=== PATIENT | female | born 1945 | race Caucasian/White ===

== ENCOUNTER → 2018-05-31 11:32 | Outpatient (CLI) | payer MEDICARE, SELFPAY ==
[2018-05-31 12:00] LABS: INR 1.1 (0.9-1.3); Prothrombin Time 11.4 SECONDS (10.1-12.7)
== END ==
PROVIDERS: PCP Family Medicine; Visit Provider Anesthesiology Pain Medicine
DX: Z79.01 Long term (current) use of anticoagulants (principal)
CPT/HCPCS: 36415; 85610

== ENCOUNTER 2018-06-15 10:25 | Emergency (ER) | payer MEDICARE, SELFPAY ==
--- NOTE | 2018-06-15 10:29 | ED.GENADULT ---
HPI - General Adult General Chief complaint: Urogenital-Female Stated complaint: POSSIBLE KIDNEY STONE Time Seen by Provider: 06/15/18 10:29 Source: patient Mode of arrival: ambulatory Limitations: no limitations History of Present Illness HPI narrative: 72-year-old female here for evaluation of urinary frequency and urgency and incontinence. She states that this has been going on for at least 3 weeks now. She states that she seems like she is going to the bathroom more often at night having to get up out of bed. She states she does have some incontinence when she sneezes or laughs however this is not new for her. She also has a longstanding history of lower back pain and has a nerve stimulator in place. She states that for the past week she has noticed that the back pain has radiated around to her right side which makes her thinks that she has a kidney stone. She has no new back pain. No fevers. No bowel symptoms. Related Data Home Medications Medication Instructions Recorded Confirmed gabapentin [Neurontin] 600 mg PO TID #0 12/25/10 insulin regular human [Novolin R 10 - 17 u SQ AC #0 12/25/10 Regular U-100 Insuln] venlafaxine [Effexor XR] 300 mg PO Q DAY #0 12/25/10 Previous Rx's Medication Instructions Recorded albuterol sulfate [Proventil HFA] 1 puff INH Q 6 HRS #1 inh 05/14/16 Disabled Parking Permit ea #1 05/14/17 insulin NPH isoph U-100 human 47 u SC BID #3 vial 05/15/17 [Novolin N NPH U-100 Insulin] morphine 15 mg PO BID #30 tab 08/24/17 clopidogrel 75 mg tablet 75 mg PO QDAY #90 tab 05/16/18 verapamil ER (SR) 240 mg 240 mg PO QDAY #90 tab 05/16/18 tablet,extended release Allergies Allergy/AdvReac Type Severity Reaction Status Date / Time adhesive [ADHESIVE] Allergy Unknown Verified 06/15/18 10:40 chlorpheniramine Allergy Unknown HIVES Verified 06/15/18 10:40 Penicillins Allergy Unknown RASH Verified 06/15/18 10:40 phenylephrine Allergy Unknown HIVES Verified 06/15/18 10:40 Sulfa (Sulfonamide Allergy Unknown RASH Verified 06/15/18 10:40 Antibiotics) celecoxib AdvReac Unknown MAKES ME Verified 06/15/18 10:40 MCKENZIE NSAIDS (Non-Steroidal AdvReac Unknown ELEVATED BP Verified 06/15/18 10:40 Anti-Inflamma Review of Systems Constitutional Denies fever(s) Cardiovascular Denies chest pain and Denies dyspnea Respiratory Denies dyspnea Gastrointestinal Gastrointestinal: Denies abdominal pain, Denies nausea and Denies vomiting Genitourinary Denies dysuria, Reports urinary incontinence, Reports urinary hesitancy, Reports urinary urgency and Denies vaginal discharge Musculoskeletal Denies myalgias and Denies arthralgias Integumentary/Breasts Denies lesions and Denies rash Hematologic/Lymphatic Denies easy bleeding and Denies easy bruising PFSH Medical History Back pain (Acute) Diabetes (Acute) Fusion of lumbar spine (Acute) Social History Smoking Status: Former smoker Comment: Surgical history significant for fusion of lumbar spine Exam Initial Vital Signs Initial Vital Signs: Vital Signs Temperature 98.6 F 06/15/18 10:36 Pulse Rate 100 H 06/15/18 10:36 Respiratory Rate 18 06/15/18 10:36 Blood Pressure 147/90 H 06/15/18 10:36 Pulse Oximetry 97 06/15/18 10:36 Const General: cooperative, healthy appearing, comfortable, well developed, well groomed and No acute distress Orientation: alert, awake and oriented x3 HENMT Head: normal to inspection and normocephalic Resp Effort & Inspection: normal respiratory effort Auscultation: clear to auscultation bilaterally Cardio Rate: regular rate Rhythm: regular rhythm Pulses: radial pulses present GI Inspection: non-distended Palpation: soft, No firm and No tender Back/Spine/Pelvis Back: No CVA tenderness Skin Lesions: no lesions Rashes: no rashes Neuro General: alert, awake and oriented x3 Extrem General: normal to inspection and capillary refill normal Psych Appearance: grossly normal and well kempt Attitude: cooperative Course Orders Ordered: ED Orders 06/15/18 11:00 Basic Metabolic Panel Stat Vital Signs - 8 hr 06/15/18 10:36 Temperature 98.6 F Pulse Rate 100 H Respiratory Rate 18 Blood Pressure 147/90 H Pulse Oximetry 97 Medical Decision Making Lab Data Lab results reviewed: Yes I reviewed the patient's lab results. Result diagrams: 06/15/18 11:00 Lab Results 06/15/18 Range/Units 11:00 Sodium 140 (137-145) mmol/L Potassium 4.1 (3.4-5.1) mmol/L Chloride 96 L (98-107) mmol/L Carbon Dioxide 31 (22-32) mmol/L BUN 18 H (7-17) mg/dL Creatinine 0.80 (0.52-1.04) mg/dL Estimated GFR > 60.0 (>60) mL/min BUN/Creatinine Ratio 22.5 H (6-22) Glucose 268 H (80-110) mg/dL Calcium 9.0 (8.4-10.2) mg/dL Urine Dip Bedside Urine Glucose 250 mg/dl Bedside Urine Bilirubin - Negative Bedside Urine Ketone - Negative Urine Specific Arnold 1.015 Bedside Urine Occult Blood - Negative Bedside Urine pH 6.0 Bedside Urine Protein - Negative Bedside Urine Urobilinogen - Negative Bedside Urine Nitrite - Negative Bedside Urine Leukocytes - Negative Esterase Point of care testing: Urine Dip Bedside Urine Glucose 250 mg/dl Bedside Urine Bilirubin - Negative Bedside Urine Ketone - Negative Urine Specific Arnold 1.015 Bedside Urine Occult Blood - Negative Bedside Urine pH 6.0 Bedside Urine Protein - Negative Bedside Urine Urobilinogen - Negative Bedside Urine Nitrite - Negative Bedside Urine Leukocytes - Negative Esterase MDM Narrative Medical decision making narrative: Patient's urinalysis today shows no blood in her urine. No signs of infection. She is hyperglycemic but no signs of DKA. Bladder scan shows less than 15 cc in her urine postvoid residual. Patient has had chronic lower back pain. Has not changed. She has not had any fevers. She does have a nerve stimulator in place and considered diagnoses such as epidural hematoma, epidural abscess, cauda equina however her physical exam otherwise is not consistent with these diagnoses. Will hold on further workup for now. Patient was instructed to monitor how much she is drinking over the next couple days. Will hold on any antibiotics as there is no signs of infection. I have a very low suspicion for kidney stone given her presentation. Will hold on a CT scan. I do suspect that she is having bladder spasms. She has had incontinence for a very long time. Informed patient that she should contact her primary care doctor for follow-up and to discuss the indications to see Urology/uro gynecology. She was given return precautions. She expressed understanding and agreement with plan. Discharge Plan Departure Patient Disposition: Home Clinical Impression: Dysuria, Urinary frequency Instructions: DI for Urinary Incontinence Activity Restrictions/Additional Instructions: I would recommend that you contact your primary care doctor tomorrow to discuss the indications to see a urologist or a urogynecologist. Return to the emergency department for any new or worsening symptoms. Continue all of your medications as directed. Prescriptions: No Action venlafaxine [Effexor XR] 150 MG capsule,extended release 24hr 300 mg PO Q DAY Qty: 0 RF: 0 gabapentin [Neurontin] 600 MG tablet 600 mg PO TID Qty: 0 RF: 0 insulin regular human [Novolin R Regular U-100 Insuln] 100 UNIT/1 ML solution 10 - 17 u SQ AC Qty: 0 RF: 0 albuterol sulfate [Proventil HFA] 90 MCG/PUFF HFA aerosol inhaler 1 puff INH Q 6 HRS Qty: 1 RF: 0 Disabled Parking Permit Qty: 1 RF: 0 insulin NPH isoph U-100 human [Novolin N NPH U-100 Insulin] 100 UNIT/1 ML suspension 47 u SC BID Qty: 3 RF: 0 morphine 15 MG tablet extended release 15 mg PO BID Qty: 30 RF: 0 verapamil 240 mg tablet extended release 240 mg PO QDAY Qty: 90 RF: 0 clopidogrel [Plavix] 75 mg tablet 75 mg PO QDAY Qty: 90 RF: 0
[2018-06-15 10:36] VITALS: BP 147/90; PULSE 100; RESP 18; TEMP 37; O2SAT 97; BMI 36.0
[2018-06-15 11:18] LABS: BUN Creatinine Ratio 22.5 (6-22); Blood Urea Nitrogen 18 mg/dL (7-17); Carbon Dioxide 31 mmol/L (22-32); Chloride 96 mmol/L (98-107); Estimated Glomerular Filt Rate > 60.0 mL/min (>60); Glucose 268 mg/dL (80-110); HEMOLYSIS < 15 (0-50); Potassium 4.1 mmol/L (3.4-5.1); Sodium 140 mmol/L (137-145)
[2018-06-15 12:29] VITALS: BP 138/64; PULSE 82; RESP 20; TEMP 36.8; O2SAT 99
== END 2018-06-15 12:30 | disposition home or self-care (01) ==
PROVIDERS: Emergency Provider Emergency Medicine; PCP Family Medicine
DX: R30.0 Dysuria (principal); R35.0 Frequency of micturition
CPT/HCPCS: 36415; 51798; 80048; 81003; 99283

== ENCOUNTER → 2018-10-16 10:19 | Outpatient (CLI) | payer MEDICARE, SELFPAY ==
[2018-10-16 11:19] LABS: Add Manual Diff / Slide Review NO; Basophils Absolute Auto 100 /uL (0-100); Basophils Percent Auto 1.1 % (0-2); Eosinophils Absolute Auto 100 /uL (0-450); Eosinophils Percent Auto 1.5 % (2-4); Hematocrit 40.9 % (36-46); Hemoglobin 13.3 g/dL (12.0-16.0); Lymphocytes Absolute Auto 3600 /uL (1100-4500); Lymphocytes Percent Auto 38.4 % (25-40); Mean Corpuscular HGB Conc 32.4 % (30-36); Mean Corpuscular Hemoglobin 28.7 PG (26-34); Mean Corpuscular Volume 88.3 fL (80-100); Monocytes Absolute Auto 700 /uL (0-900); Monocytes Percent Auto 7.2 % (3-14); Neutrophils Absolute Auto 4900 /uL (1500-7000); Neutrophils Percent Auto 51.8 % (50-75); Platelet Count 266 X10^3/uL (150-400); Red Blood Cell Count 4.63 X10^6/uL (4.0-5.2); Red Cell Distribution Width 14.6 % (11.6-14.8); White Blood Cell Count 9.5 X10^3/uL (4.5-11.0)
[2018-10-16 11:27] LABS: Alanine Aminotransferase 17 IU/L (9-52); Albumin 4.3 g/dL (3.5-5.0); Albumin Globulin Ratio 1.2 (1.0-2.8); Alkaline Phosphatase 65 U/L (38-126); Aspartate Aminotransferase 19 IU/L (14-36); BUN Creatinine Ratio 14.4 (6-22); Bilirubin Total 0.6 mg/dL (0.2-1.3); Blood Urea Nitrogen 13 mg/dL (7-17); Carbon Dioxide 27 mmol/L (22-32); Chloride 96 mmol/L (98-107); Cholesterol 213 mg/dL (140-199); Estimated Glomerular Filt Rate > 60.0 mL/min (>60); Globulin 3.6 g/dL (1.7-4.1); Glucose 255 mg/dL (80-110); HDL Cholesterol 43 mg/dL (40-60); HEMOLYSIS < 15 (0-50); LDL Cholesterol Calculated 133 mg/dL (<100); Sodium 136 mmol/L (137-145); Total Protein 7.9 g/dL (6.3-8.2); Triglycerides 183 mg/dL (35-150)
[2018-10-16 11:30] LABS: Hemoglobin A1C% w Est Avg Glu 10.1 % (4.0-6.0)
[2018-10-16 11:57] LABS: Thyroid Stimulating Hormone 3.14 uIU/mL (0.47-4.68)
== END ==
PROVIDERS: PCP Family Medicine; Visit Provider Family Medicine
DX: E11.9 Type 2 diabetes mellitus without complications (principal); I10 Essential (primary) hypertension; M40.204 Unspecified kyphosis, thoracic region; Z91.19 Patient's noncompliance with other medical treatment and regimen
CPT/HCPCS: 36415; 80053; 80061; 83036; 84443; 85025

== ENCOUNTER 2018-11-16 01:20 | Inpatient (IN) | payer MEDICARE, SELFPAY ==
[2018-11-16] VITALS (22 sets, daily range): BP systolic 133–171; BP diastolic 51–84; PULSE 97–114; RESP 13–24; TEMP 36.2–37.6; O2SAT 87–95; BMI 35.4
--- NOTE | 2018-11-16 | DI.ECHO.S_ITS ---
[facility] +---------+ [facility] +---------+ : : [address] : : : : [id number] : : : : Phone: [phone] Echocardiogram Report + + :Name: HORACE SANABRIA Study Date: 11/17/2018 Height: 68 in : :[facility] Weight: 239 lb : : Gender: Female BSA: 2.2 m2 : :: 1945 Age: 73 yrs BP: 118/85 mmHg: :Reason For Study: Dyspnea : : Performed By: Marcella Lerma : :Referring: ISMAEL NAVAS : + + Interpretation Summary Technically difficult study and suboptimal images were obtained. Mild-moderately dilated left ventricle with ejection fraction 40-45%. The endocardium is not well visualized. Moderately dilated left atrium. Severe mitral regurgitation. The right ventricular systolic pressure is estimated to be at least 37 mmHg based on an estimated right atrial pressure of 3 mm Hg. Procedure: A two-dimensional transthoracic echocardiogram with color flow and Doppler was performed. The study quality was technically difficult. There is no prior echocardiogram noted for this patient. The heart rate ranged between 100-101 bpm during the study. Left Ventricle: The left ventricle is mild-moderately dilated. There is normal left ventricular wall thickness. The ejection fraction is estimated to be 40-45%. Diastolic function could not be accurately assessed due to tachycardia. Right Ventricle: The right ventricle grossly appears normal in size with probable normal systolic function. Atria: The left atrium is moderately dilated. Right atrial size is normal. Mitral Valve: The mitral valve is grossly normal. There is severe mitral regurgitation. Aortic Valve: The aortic valve opens well. No aortic regurgitation is present. Tricuspid Valve: The tricuspid valve is normal in structure and function. There is trace tricuspid regurgitation. The right ventricular systolic pressure is estimated to be at least 37 mmHg based on an estimated right atrial pressure of 3 mm Hg. Pulmonic Valve: The pulmonic valve is not well visualized. There is trace pulmonic regurgitation. Great Vessels: The aortic root is normal size. The ascending aorta is at the upper limits of normal in size. The aortic arch is normal in size. The IVC is of normal diameter and collapses greater than 50% with a sniff. This suggests a low right atrial pressure of 3 mm Hg. Pericardium/ Pleura There is no pericardial effusion. There has been no significant change since the previous study. MMode/2D Measurements & Calculations LVIDd: 6.0 cm Ao root diam: 3.2 cm LVIDs: 4.9 cm Aortic Jxn: 2.9 cm FS: 18.0 % asc Aorta Diam: 3.4 cm EPSS: 0.79 cm Ao Arch Diam (Prox Trans): 2.8 cm IVSd: 0.83 cm LVPWd: 0.82 cm LV reyes. diameter/BSA (cm/m^2): 2.7 LV sys. diameter/BSA (cm/m^2): 2.2 LA dimension: 4.2 cm RA long axis: 5.3 cm LA A2 area: 25.7 cm2 RA area: 16.5 cm2 LA A4 area: 27.5 cm2 RA vol: 43.6 ml LA length (vol): 6.0 cm RA : 19.8 ml/m2 LA vol: 100.3 ml IVC diam: 1.7 cm LA vol index: 45.5 ml/m2 Doppler Measurements & Calculations Ao V2 max: 134.0 cm/sec MR ERO: 0.45 cm2 Ao V2 mean: 92.5 cm/sec Ao max P.2 mmHg Ao mean P.9 mmHg Ao V2 VTI: 26.7 cm TR max ang: 292.7 cm/sec MV V2 mean: 74.7 cm/sec TR max P.3 mmHg MV mean P.8 mmHg PA V2 max: 72.4 cm/sec MV V2 VTI: 21.1 cm PA V2 mean: 42.9 cm/sec PA mean P.93 mmHg PA Accel Time: 0.13 sec MR flow rate: 233.5 cm3/sec MR PISA radius: 0.98 cm Electronically signed by: Jesús Khan on Reading Physician:11/17/2018 01:30 PM
--- NOTE | 2018-11-16 01:34 | ED.SOB ---
HPI - SOB/Dyspnea General Chief Complaint: Upper Respiratory Symptoms Stated Complaint: can't breathe, lung congestion, tight chest Time Seen by Provider: 11/16/18 01:29 Source: patient Mode of arrival: ambulatory Limitations: no limitations History of Present Illness Patient is a 73-year-old female insulin-dependent diabetic here for evaluation of 2-3 days of worsening chest tightness, shortness of breath, dyspnea on exertion, and subjective fevers. Has been coughing but has been nonproductive. No chest pain. Has had some lower extremity swelling which is not new. Related Data Home Medications Medication Instructions Recorded Confirmed venlafaxine [Effexor XR] 300 mg PO Q DAY #0 12/25/10 11/16/18 gabapentin 600 mg tablet 1,200 mg PO TID #0 tab 09/15/18 11/16/18 insulin U- 100 regular human 100 See Rx Instructions SUBCUT BID ml 09/15/18 11/16/18 unit/mL injection solution Disabled Parking Permit 1 ea DAILY 11/16/18 11/16/18 Previous Rx's Medication Instructions Recorded albuterol sulfate HFA 90 1 puff INHALATION Q 6 HRS #1 inh 09/15/18 mcg/actuation aerosol inhaler clopidogrel 75 mg tablet 75 mg PO QDAY #90 tab 09/15/18 insulin NPH isophane U- 100 human 50 unit SUBCUT BID #3 vial 09/15/18 100 unit/mL subcutaneous suspension verapamil ER (SR) 240 mg 240 mg PO QDAY #90 tab 09/15/18 tablet,extended release Allergies Allergy/AdvReac Type Severity Reaction Status Date / Time vancomycin Allergy Intermediate itching Verified 09/15/18 17:26 adhesive [ADHESIVE] Allergy Unknown Verified 09/15/18 17:26 chlorpheniramine Allergy Unknown HIVES Verified 09/15/18 17:26 Penicillins Allergy Unknown RASH Verified 09/15/18 17:26 phenylephrine Allergy Unknown HIVES Verified 09/15/18 17:26 Sulfa (Sulfonamide Allergy Unknown RASH Verified 09/15/18 17:26 Antibiotics) celecoxib AdvReac Unknown MAKES ME Verified 09/15/18 17:26 LOONEY NSAIDS (Non-Steroidal AdvReac Unknown ELEVATED BP Verified 09/15/18 17:26 Anti-Inflamma Review of Systems Constitutional Reports fever(s) ENT Ears, Nose, Mouth, and Throat: Denies vertigo Cardiovascular Denies chest pain, Reports dyspnea and Reports dyspnea on exertion Respiratory Reports chest congestion, Reports cough, Reports dyspnea and Reports dyspnea on exertion Gastrointestinal Gastrointestinal: Denies abdominal pain, Denies nausea and Denies vomiting Genitourinary Denies dysuria Musculoskeletal Denies myalgias and Denies arthralgias Comments: Lower extremity edema Integumentary/Breasts Denies rash Neurologic Denies confusion and Denies vertigo Psychiatric Denies confusion Hematologic/Lymphatic Denies easy bleeding and Denies easy bruising Allergic/Immunologic Denies urticaria [facility] Medical History Back pain (Acute) Diabetes (Acute) Fusion of lumbar spine (Acute) Social History Smoking Status: Former smoker Exam Initial Vital Signs Initial Vital Signs: Vital Signs Temperature 99.3 F 11/16/18 01:27 Pulse Rate 98 H 11/16/18 01:27 Respiratory Rate 24 11/16/18 01:27 Blood Pressure 155/51 H 11/16/18 01:27 Pulse Oximetry 95 11/16/18 01:27 Const General: cooperative, well groomed and No acute distress Orientation: alert, awake and oriented x3 HENMT Head: normal to inspection and normocephalic Resp Effort & Inspection: cough, labored, no retractions and tachypneic Auscultation: rhonchi and other (Decreased breath sounds bilateral) Cardio Rate: regular rate Pulses: radial pulses present GI Inspection: non-distended Palpation: soft Skin Lesions: no lesions Rashes: no rashes Neuro General: alert, awake and oriented x3 Cognition: normal cognition Speech: speech normal Extrem General: normal to inspection, capillary refill normal and edema (1+ pitting edema bilateral lower extremities) Psych Appearance: grossly normal and well kempt Scores GCS Diana coma scale eye opening: Spontaneous Diana coma scale verbal response: Orientated [place] coma scale motor response: Obey commands Diana coma scale total score: 15 Course Orders Ordered: ED Orders 11/16/18 01:35 XR chest 1V Stat 11/16/18 01:42 EKG-12 Lead Stat 11/16/18 01:43 RT Consult Eval and Treat Now 11/16/18 02:10 B Type Natriuretic Peptide Stat Complete Blood Count AUTO DIFF Stat Comprehensive Metabolic Panel Stat D Dimer Stat Influenza A and B by PCR Rapid Stat Lipase Stat Partial Thromboplastin Time Stat Prothrombin Time INR Stat Troponin I Stat 11/16/18 03:00 CT angio chest PE protocol Stat Discontinued Medications Albuterol (Ventolin) 2.5 mg INH NOW ONE Stop: 11/16/18 01:43 Last Admin: 11/16/18 01:49 Dose: 2.5 mg Azithromycin 500 mg/ Dextrose 250 mls @ 250 mls/hr IV NOW ONE Stop: 11/16/18 05:05 Vital Signs - 8 hr 11/16/18 01:27 11/16/18 01:49 11/16/18 02:59 Temperature 99.3 F Pulse Rate 98 H 98 H 99 H Respiratory Rate 24 14 24 Blood Pressure 155/51 H Blood Pressure [Left Arm] 151/54 H Pulse Oximetry 95 94 94 11/16/18 04:14 Temperature Pulse Rate 97 H Respiratory Rate 21 Blood Pressure Blood Pressure [Left Arm] 142/62 H Pulse Oximetry 95 MDM - SOB/Dyspnea Medical Records Attestation: I reviewed the patient's medical records. Lab Data Attestation: I reviewed the patient's lab results. Result diagrams: 11/16/18 02:10 11/16/18 02:10 Lab Results 11/16/18 11/16/18 11/16/18 Range/Units 02:10 02:10 02:10 WBC 10.7 (4.5-11.0) X10^3/uL RBC 3.99 L (4.0-5.2) X10^6/uL Hgb 11.7 L (12.0-16.0) g/dL Hct 35.2 L (36-46) % MCV 88.1 (80-100) fL MCH 29.3 (26-34) PG MCHC 33.2 (30-36) % RDW 15.4 H (11.6-14.8) % Plt Count 245 (150-400) X10^3/uL Neut % (Auto) 67.3 (50-75) % Lymph % (Auto) 23.1 L (25-40) % [place] % (Auto) 7.4 (3-14) % Eos % (Auto) 0.8 L (2-4) % Baso % (Auto) 1.4 (0-2) % Neut # (Auto) 7200 H (8757-9000) /uL Lymph # (Auto) 2500 (5885-0932) /uL [place] # (Auto) 800 (0-900) /uL Eos # (Auto) 100 (0-450) /uL Baso # (Auto) 100 (0-100) /uL PT 11.6 (10.1-12.7) SECONDS INR 1.0 (0.9-1.3) APTT 25 L (26.4-36.2) SECONDS D-Dimer (<230) ng/mL Sodium 133 L (137-145) mmol/L Potassium 4.3 (3.4-5.1) mmol/L Chloride 96 L (98-107) mmol/L Carbon Dioxide 27 (22-32) mmol/L BUN 17 (7-17) mg/dL Creatinine 0.90 (0.52-1.04) mg/dL Estimated GFR > 60.0 (>60) mL/min BUN/Creatinine Ratio 18.9 (6-22) Glucose 371 H (80-110) mg/dL Calcium 8.9 (8.4-10.2) mg/dL Total Bilirubin 0.5 (0.2-1.3) mg/dL AST 18 (14-36) IU/L ALT 13 (9-52) IU/L Alkaline Phosphatase 65 (38-126) U/L Troponin I 0.019 (0.01-0.034) ng/mL B-Natriuretic Peptide 140 H (<100) Total Protein 7.5 (6.3-8.2) g/dL Albumin 3.9 (3.5-5.0) g/dL Globulin 3.6 (1.7-4.1) g/dL Albumin/Globulin Ratio 1.1 (1.0-2.8) Lipase 77 (23-300) U/L Influenza A & B (PCR) (Negative) 11/16/18 11/16/18 Range/Units 02:10 02:10 WBC (4.5-11.0) X10^3/uL RBC (4.0-5.2) X10^6/uL Hgb (12.0-16.0) g/dL Hct (36-46) % MCV (80-100) fL MCH (26-34) PG MCHC (30-36) % RDW (11.6-14.8) % Plt Count (150-400) X10^3/uL Neut % (Auto) (50-75) % Lymph % (Auto) (25-40) % [place] % (Auto) (3-14) % Eos % (Auto) (2-4) % Baso % (Auto) (0-2) % Neut # (Auto) (4830-8647) /uL Lymph # (Auto) (7144-9705) /uL [place] # (Auto) (0-900) /uL Eos # (Auto) (0-450) /uL Baso # (Auto) (0-100) /uL PT (10.1-12.7) SECONDS INR (0.9-1.3) APTT (26.4-36.2) SECONDS D-Dimer 417 H (<230) ng/mL Sodium (137-145) mmol/L Potassium (3.4-5.1) mmol/L Chloride (98-107) mmol/L Carbon Dioxide (22-32) mmol/L BUN (7-17) mg/dL Creatinine (0.52-1.04) mg/dL Estimated GFR (>60) mL/min BUN/Creatinine Ratio (6-22) Glucose (80-110) mg/dL Calcium (8.4-10.2) mg/dL Total Bilirubin (0.2-1.3) mg/dL AST (14-36) IU/L ALT (9-52) IU/L Alkaline Phosphatase (38-126) U/L Troponin I (0.01-0.034) ng/mL B-Natriuretic Peptide (<100) Total Protein (6.3-8.2) g/dL Albumin (3.5-5.0) g/dL Globulin (1.7-4.1) g/dL Albumin/Globulin Ratio (1.0-2.8) Lipase (23-300) U/L Influenza A & B (PCR) Negative (Negative) Imaging Data Chest x-ray: Attestation: I personally reviewed and interpreted this imaging study as follows: My impression: Right-sided patchy infiltrates concerning for pneumonia, no pneumothorax CT scan - chest: Radiologist's impression: Moderate to severe bilateral ground-glass opacities and pulmonary consolidations most consistent with pneumonia. Small bilateral pleural effusions. Mild lung base interstitial thickening likely pulmonary edema. No pulmonary emboli ECG Data Attestation: I personally reviewed and interpreted this ECG as follows: Prior ECG tracings: not available for review Interpretation: Sinus rhythm Ventricular rate of 98 Normal QRS and normal QTC Nonspecific ST T wave changes MDM Narrative Medical decision making narrative: Patient arrived tachypneic and hypoxic to the mid 80s which responded with 3 L of nasal cannula. Patient symptomatic we had much improvement of her symptoms. She was afebrile here in the ER. Does not have a elevated white blood cell count. Flu was negative. EKG is unremarkable. Chest x-ray showed bilateral patchy infiltrates concerning for pneumonia however given the fact that she did not have a white blood cell count and did not have fever I felt that a CTA was warranted to evaluate further pathology. The CT showed patchy infiltrates concerning for bilateral multifocal pneumonia. Patient does not meet criteria for healthcare associated pneumonia. When she got up to ambulate her oxygen saturations dropped to the low 80s and she became very symptomatic from this. This did improve with oxygen by nasal cannula. She was given azithromycin IV. Discussed case with the night hospitalist. Will admit to the hospital for continued IV treatment and oxygen. I discussed admission with the patient. She expressed understanding and agreement with plan. Discharge Plan Departure Patient Disposition: Admitted As Inpatient Clinical Impression: Hypoxia Pneumonia Qualifiers: Pneumonia type: due to unspecified organism Laterality: right Lung location: unspecified part of lung Qualified Code(s): J18.9 - Pneumonia, unspecified organism Referrals: Shaylee Baltazar DO [Primary Care Provider] -
--- NOTE | 2018-11-16 01:35 | DI.RAD.S_ITS ---
PROCEDURE: XR CHEST 1V INDICATIONS: Shortness of breath and hypoxia TECHNIQUE: One view of the chest was acquired. COMPARISON: None. FINDINGS: Surgical changes and devices: Spinal stimulator leads project over the lower thoracic spine. Lungs and pleura: Patchy bilateral alveolar opacity. No pleural effusions or pneumothorax. Mediastinum: Mediastinal contours appear normal. Heart size is normal. Bones and chest wall: No suspicious bony lesions. Overlying soft tissues appear unremarkable. IMPRESSION: Findings suggest multifocal bilateral pneumonia. Dictated by: Khushi Beltre M.D. on 11/16/2018 at 7:58 Approved by: Khushi Beltre M.D. on 11/16/2018 at 7:59
[2018-11-16] MEDS: ALBUTEROL 2.5 MG/3 ML NEB (ADULT) INH (01:49)
[2018-11-16 02:31] LABS: Add Manual Diff / Slide Review NO; Basophils Absolute Auto 100 /uL (0-100); Basophils Percent Auto 1.4 % (0-2); Eosinophils Absolute Auto 100 /uL (0-450); Eosinophils Percent Auto 0.8 % (2-4); Hematocrit 35.2 % (36-46); Hemoglobin 11.7 g/dL (12.0-16.0); Lymphocytes Absolute Auto 2500 /uL (1100-4500); Lymphocytes Percent Auto 23.1 % (25-40); Mean Corpuscular HGB Conc 33.2 % (30-36); Mean Corpuscular Hemoglobin 29.3 PG (26-34); Mean Corpuscular Volume 88.1 fL (80-100); Monocytes Absolute Auto 800 /uL (0-900); Monocytes Percent Auto 7.4 % (3-14); Neutrophils Absolute Auto 7200 /uL (1500-7000); Neutrophils Percent Auto 67.3 % (50-75); Platelet Count 245 X10^3/uL (150-400); Red Blood Cell Count 3.99 X10^6/uL (4.0-5.2); Red Cell Distribution Width 15.4 % (11.6-14.8); White Blood Cell Count 10.7 X10^3/uL (4.5-11.0)
[2018-11-16 02:40] LABS: Alanine Aminotransferase 13 IU/L (9-52); Albumin 3.9 g/dL (3.5-5.0); Albumin Globulin Ratio 1.1 (1.0-2.8); Alkaline Phosphatase 65 U/L (38-126); Aspartate Aminotransferase 18 IU/L (14-36); BUN Creatinine Ratio 18.9 (6-22); Bilirubin Total 0.5 mg/dL (0.2-1.3); Blood Urea Nitrogen 17 mg/dL (7-17); Calcium 8.9 mg/dL (8.4-10.2); Carbon Dioxide 27 mmol/L (22-32); Chloride 96 mmol/L (98-107); Estimated Glomerular Filt Rate > 60.0 mL/min (>60); Globulin 3.6 g/dL (1.7-4.1); Glucose 371 mg/dL (80-110); HEMOLYSIS < 15 (0-50); Influenza A and B by PCR Rapid Negative (Negative); Lipase 77 U/L (23-300); Potassium 4.3 mmol/L (3.4-5.1); Sodium 133 mmol/L (137-145); Total Protein 7.5 g/dL (6.3-8.2)
[2018-11-16 02:42] LABS: Prothrombin Time 11.6 SECONDS (10.1-12.7)
[2018-11-16 02:44] LABS: PTT Partial Thromboplastin Tim 25 SECONDS (26.4-36.2)
[2018-11-16 02:52] LABS: Troponin I 0.019 ng/mL (0.01-0.034)
[2018-11-16 02:57] LABS: D Dimer 417 ng/mL (<230)
[2018-11-16 02:58] LABS: B Type Natriuretic Peptide 140 (<100)
--- NOTE | 2018-11-16 03:00 | DI.CT.S_ITS ---
PROCEDURE: CT ANGIO CHEST PE PROTOCOL INDICATIONS: Chest pain, shortness of breath, TECHNIQUE: After the administration of intravenous contrast, 2 mm thick sections acquired from the pulmonary apices to the posterior costophrenic angles. 3-dimensional maximum intensity projection (MIP) coronal and sagittal reformats were then acquired through the thorax. For radiation dose reduction, the following was used: automated exposure control, adjustment of mA and/or kV according to patient size. COMPARISON: None. FINDINGS: Image quality: Excellent. Pulmonary arteries: Pulmonary arteries are normal in size, and demonstrate no intraluminal filling defects to suggest central pulmonary embolism. Lungs and pleura: Multiple patchy alveolar opacities throughout the upper and lower lungs bilaterally. Small bilateral pleural effusions present.. No pleural effusions or pneumothorax. Central and peripheral airways are patent. Mediastinum: Heart size is mildly enlarged with dense coronary calcification, without pericardial effusion. Moderate diffuse mediastinal and bilateral hilar adenopathy. Thoracic aorta is normal in caliber and enhancement. Esophagus is normal in caliber, without hiatal hernia. Bones and chest wall: No suspicious bony lesions. Ribs and thoracic spine appear intact throughout. 2 nerve stimulator leads are present in the thoracic epidural space. Thyroid gland is normal. No axillary or supraclavicular adenopathy. Abdomen: Visualized upper abdominal solid organs appear normal in the early arterial phase of enhancement. The gallbladder is surgically absent. IMPRESSION: 1. No pulmonary embolus. 2. Multifocal bilateral patchy alveolar opacities consistent with pneumonia. 3. Associated very small bilateral pleural effusions and moderate mediastinal and hilar adenopathy. 4. Mild cardiomegaly with dense coronary atherosclerosis. Concordant with the preliminary report. Dictated by: Khushi Beltre M.D. on 11/16/2018 at 8:09 Approved by: Khushi Beltre M.D. on 11/16/2018 at 8:16
--- NOTE | 2018-11-16 04:50 | PC.NURSE ---
Ambulation trial after RA trial while sitting in room. Pt was able to maintain 91-92% sitting in bed on RA. Pt ambulated with walker to restroom, pt desated to 81%, chest tightness came back, unable to speak in full sentences. Pt returned to room via wheelchair and placed back on 3L NC, O2 sats returned to 95% and chest tightness relieved. Dr Will aware.
[2018-11-16] MEDS: AZITHROMYCIN 500 MG in DEXTROSE 5% IN WATER 250 ML IV (05:46)
--- NOTE | 2018-11-16 06:27 | PM.HP.1 ---
History of Present Illness Date Patient Seen: 11/16/18 Time Patient Seen: 06:27 Chief complaint: can't breathe, lung congestions, tight chest Narrative: PMH: HTN, DM 2T, diabetic neuropathy, h/o diabetic foot ulcer, CVA (2000, no deficits), obesity, OA, chronic lumbar pain, spinal stenosis, lumbar post-laminectomy syndrome, anxiety and depression, h/o suicide attempt, prior tobacco dependence, multiple drug allergies PSH: Lumbar spine fusion with postoperative staph infection (2005), spinal stimulator implant The patient is a 73-year-old female with aforementioned PMH-PSH who presented to the ED on 10/19/2018 out of concern for upper respiratory symptoms. Specifically reports cough, chest congestion, chest tightness, difficulty breathing and subjective elevated temperature (99.7F). Symptoms onset is gradual, initially noted 6 days ago, progressively worsening. Notes cough to be with nonproductive w/ minimal purulence, white. No hemoptysis. denies chest pain, palpitations, dizziness, lightheadedness, syncopal events, abdominal pain, nausea, vomiting, and symptoms of cystitis. Two days ago had 4 episodes of diarrhea, without recurrence. Reports stable appetite and weight. On presentation to the ED patient was noted to be hypoxic with SpO2 of 85%. Symptoms are worsened and relieved with oxygen/nebulizer treatments. Patient denies underlying history of asthma, COPD, or chronic O2 use. ED Work-Up T 99.3F BP 155/51 HR 98 RR 24 SpO2 85% WBC 10.7 MCV 88.1 MCHC 33.2 HGB 11.7 PLT 245 aPTT 25 PT 11.6 INR 1 D-Dimer 417 BNP 140 Trop 0.019 Influenza A/B negative NA 133 K 4.3 CL 96 CA 8.9 CO2 27 BUN 17 CR 0.9 ratio 18.9 Glu 371 Liver enzymes and Lipase WNL CXR and CTA chest done in ED, results pending, per ED physician (+ multi-focal pneumonia, no pulmonary embolism) In ED received albuterol treatment and azithromycin Other: failed ambulation trial post ED treatment, hypoxic with ambulation Patient History Medical History Back pain (Acute) Diabetes (Acute) Fusion of lumbar spine (Acute) Social History Smoking Status: Former smoker Family & Social History Family History Mother No known health problems Father No known health problems Tobacco & Substance use: Smoking Status Former smoker alcohol intake frequency holiday/special occasion Substance Use Type does not use Meds Home Medications Medication Instructions Recorded Confirmed Type venlafaxine [Effexor XR] 300 mg PO Q DAY #0 12/25/10 11/16/18 History albuterol sulfate HFA 90 1 puff INHALATION Q 6 HRS #1 inh 09/15/18 11/16/18 Rx mcg/actuation aerosol inhaler clopidogrel 75 mg tablet 75 mg PO QDAY #90 tab 09/15/18 11/16/18 Rx gabapentin 600 mg tablet 1,200 mg PO TID #0 tab 09/15/18 11/16/18 History insulin NPH isophane U- 100 human 50 unit SUBCUT BID #3 vial 09/15/18 11/16/18 Rx 100 unit/mL subcutaneous suspension insulin U- 100 regular human 100 See Rx Instructions SUBCUT BID ml 09/15/18 11/16/18 History unit/mL injection solution verapamil ER (SR) 240 mg 240 mg PO QDAY #90 tab 09/15/18 11/16/18 Rx tablet,extended release Disabled Parking Permit 1 ea DAILY 11/16/18 11/16/18 History Allergies Allergy/AdvReac Type Severity Reaction Status Date / Time vancomycin Allergy Intermediate itching Verified 11/16/18 05:49 adhesive [ADHESIVE] Allergy Unknown Verified 11/16/18 05:49 chlorpheniramine Allergy Unknown HIVES Verified 11/16/18 05:49 Penicillins Allergy Unknown RASH Verified 11/16/18 05:49 phenylephrine Allergy Unknown HIVES Verified 11/16/18 05:49 Sulfa (Sulfonamide Allergy Unknown RASH Verified 11/16/18 05:49 Antibiotics) celecoxib AdvReac Unknown MAKES ME Verified 11/16/18 05:49 LOONEY NSAIDS (Non-Steroidal AdvReac Unknown ELEVATED BP Verified 11/16/18 05:49 Anti-Inflamma Review of Systems Review of Systems All systems reviewed & are unremarkable except as noted in HPI and below Exam Vital Signs (past 8 hours): - 11/16/18 01:27 11/16/18 01:49 11/16/18 02:30 Temperature 99.3 F Pulse Rate 98 H 98 H 99 H Respiratory Rate 24 14 14 Blood Pressure 155/51 H Blood Pressure [Left Arm] 151/54 H Pulse Oximetry 95 94 94 11/16/18 02:59 11/16/18 04:14 11/16/18 05:31 Temperature Pulse Rate 99 H 97 H 97 H Respiratory Rate 24 21 13 Blood Pressure Blood Pressure [Left Arm] 151/54 H 142/62 H 150/63 H Pulse Oximetry 94 95 95 11/16/18 06:07 Temperature Pulse Rate 98 H Respiratory Rate 17 Blood Pressure 140/66 Blood Pressure [Left Arm] Pulse Oximetry 95 Oxygen Delivery Method Nasal Cannula Oxygen Flow Rate 3 Narrative Exam Narrative: GENERAL: No acute distress, obese female BMI 36.9 NEURO: AOx3, no focal anomalies w/ exception of mild the weakness (residual from previous stroke) HEENT NC, AT Gaze conjugate, pupils round equal and reactive, EOMI, sclerae anicteric External ears normal, no otorrhea External nose normal, no epistaxis, no sinus drainage MMM, oropharynx without inflammation or lesions HEART: S1-S2, no murmur CHEST and LUNGS: symmetrical rise, no dyspnea at rest, mild tachypnea, coarse breath b/l LOWER EXTREMITIES: mildly in noted, slightly cool to touch, bi-pedal pulses diminished PERIPHERAL EDEMA: present, bilateral, trace 1+, non-pitting ABDOMEN: soft, NT, ND, normoactive BS FLANK and POSTERIOR TORSO: no CVA tenderness MUSCULOSKELETAL: ROM intact of upper and lower extremities, no localized joint tenderness or effusion SKIN: pale generalized appearance, no ecchymosis, left foot w/ healing injury Objective Labs Result Diagrams: 11/16/18 02:10 11/16/18 02:10 Labs: Laboratory Results - last 24 hr 11/16/18 11/16/18 11/16/18 02:10 02:10 02:10 WBC 10.7 RBC 3.99 L Hgb 11.7 L Hct 35.2 L MCV 88.1 MCH 29.3 MCHC 33.2 RDW 15.4 H Plt Count 245 Neut % (Auto) 67.3 Lymph % (Auto) 23.1 L [place] % (Auto) 7.4 Eos % (Auto) 0.8 L Baso % (Auto) 1.4 Neut # (Auto) 7200 H Lymph # (Auto) 2500 [place] # (Auto) 800 Eos # (Auto) 100 Baso # (Auto) 100 PT 11.6 INR 1.0 APTT 25 L D-Dimer Sodium 133 L Potassium 4.3 Chloride 96 L Carbon Dioxide 27 BUN 17 Creatinine 0.90 Estimated GFR > 60.0 BUN/Creatinine Ratio 18.9 Glucose 371 H Calcium 8.9 Total Bilirubin 0.5 AST 18 ALT 13 Alkaline Phosphatase 65 Troponin I 0.019 B-Natriuretic Peptide 140 H Total Protein 7.5 Albumin 3.9 Globulin 3.6 Albumin/Globulin Ratio 1.1 Lipase 77 Influenza A & B (PCR) 11/16/18 11/16/18 02:10 02:10 WBC RBC Hgb Hct MCV MCH MCHC RDW Plt Count Neut % (Auto) Lymph % (Auto) [place] % (Auto) Eos % (Auto) Baso % (Auto) Neut # (Auto) Lymph # (Auto) [place] # (Auto) Eos # (Auto) Baso # (Auto) PT INR APTT D-Dimer 417 H Sodium Potassium Chloride Carbon Dioxide BUN Creatinine Estimated GFR BUN/Creatinine Ratio Glucose Calcium Total Bilirubin AST ALT Alkaline Phosphatase Troponin I B-Natriuretic Peptide Total Protein Albumin Globulin Albumin/Globulin Ratio Lipase Influenza A & B (PCR) Negative Assessment & Plan Assessment & Plan narrative: Multi-focal pneumonia - CXR and CTA, suspicious for multifocal pneumonia, final read pending - blood cultures completed in the ED, results pending, to be followed - collect sputum culture, urine AGs, viral respiratory panel, and PCT STAT - AM labs: CBC, BMP, Mg - consult respiratory therapy for supplemental O2 management and nebulizer treatments - duo-nebs Q4H, PEP, IS Q1HWA Acute respiratory failure with hypoxia, present on admission In the setting of multifocal pneumonia - see plan of care for 'multi-focal pneumonia' - lactate STAT DM 2T, insulin dependent, uncontrolled, with hyperglycemia (Glu 371), with complications of diabetic neuropathy, present on admission - Glu POC AC/HS - Resume NPH per ASSOCIATE PASTOR regimen - Diabetic diet Acute hyponatremia, mild, in the setting of hyperglcymia, corrected NA is 137 Elevated D-dimer, 417, present on admission, CTA negative for pulmonary embolism (final read pending) Diabetic neuropathy, stable chronic condition, resume [employer]OCI[employer] PAST[employer] regimen of gabapentin H/O of CVA with residual deficit (LLE mild weakness, foot drop), chronic condition, present admission, stable - continue risk factor modification with Plavix Chronic lumbar pain, chronic condition, stable / controlled w/ a spinal stimulator Anxiety and Depression, chronic condition, stable / controlled - Resume [employer]ST[employer] anti-depressant regimen Code Status DNR, no surrogate decision maker (discussed w/ patient) VTE prophylaxis: SQ heparin Home medications reviewed and reconcilled accordingly
[2018-11-16] MEDS: ALBUTEROL/IPRATROPIUM 3 ML AMPUL INH ×4 (07:20→19:39)
[2018-11-16 08:22] LABS: Lactate (Lactic Acid) 1.8 mmol/L (0.7-2.1)
[2018-11-16 08:37] LABS: Procalcitonin 0.05 ng/mL (<0.5)
[2018-11-16] MEDS: CEFTRIAXONE 2 GM/50 ML FROZ.PIGGY IV (09:17)
[2018-11-16] MEDS: CLOPIDOGREL 75 MG TABLET PO (09:25)
[2018-11-16] MEDS: GABAPENTIN 600 MG TABLET 1200 MG PO ×3 (09:25→20:22)
[2018-11-16] MEDS: VENLAFAXINE ER 75 MG CAP 300 MG PO (09:25)
[2018-11-16] MEDS: HEPARIN 5,000 UNIT/ML VIAL 5000 UNIT SUBCUT ×2 (09:26→20:22)
[2018-11-16 11:44] LABS: Adenovirus Not Detected (Not Detect); Bordetella pertussis Not Detected (Not Detect); Chlamydophila pneumoniae Not Detected (Not Detect); Coronavirus 229E Not Detected (Not Detect); Coronavirus HKU1 Not Detected (Not Detect); Coronavirus NL 63 Not Detected (Not Detect); Coronavirus OC43 Not Detected (Not Detect); Human Metapneumovirus Not Detected (Not Detect); Human Rhinovirus/Enterovirus Not Detected (Not Detect); Influenza A Not Detected (Not Detect); Influenza B Not Detected (Not Detect); Mycoplasma pneumoniae Not Detected (Not Detect); Parainfluenza Virus 1 Not Detected (Not Detect); Parainfluenza Virus 2 Not Detected (Not Detect); Parainfluenza Virus 3 Not Detected (Not Detect); Parainfluenza Virus 4 Not Detected (Not Detect); Respiratory Syncytial Virus Not Detected (Not Detect)
[2018-11-16] MEDS: INSULIN NPH 100 UNIT/ML VIAL 50 UNIT SUBCUT ×2 (12:26→20:22)
[2018-11-16] MEDS: ACETAMINOPHEN 325 MG TABLET 650 MG PO (16:14)
[2018-11-16] MEDS: guaiFENesin ER 600 MG TAB 1200 MG PO (20:22)
[2018-11-16] MEDS: INSULIN REGULAR 100 UNIT/ML 3 ML VIAL 10 UNIT SUBCUT (22:17)
[2018-11-17] VITALS (19 sets, daily range): BP systolic 125–152; BP diastolic 53–70; PULSE 100–111; RESP 14–23; TEMP 36.1–38.2; O2SAT 90–96
[2018-11-17] MEDS: BENZONATATE 100 MG CAPSULE PO ×2 (00:02→21:48)
[2018-11-17] MEDS: BENZOCAINE/MENTHOL 1 LOZ PKT 1 EACH PO ×2 (00:03→09:05)
[2018-11-17] MEDS: ALBUTEROL/IPRATROPIUM 3 ML AMPUL INH ×6 (00:03→19:59)
[2018-11-17 00:33] LABS: Fractionated Inspired Oxygen 50; HCO3 ABG 24 mmol/L (22-26); Oxygen Saturation ABG 95 % (95-100); PO2 ABG 71 mmHg (80-100); TCO2 ABG 25 mmol/L (21-31); pH ABG 7.48 (7.35-7.45)
[2018-11-17] MEDS: FUROSEMIDE 40 MG/4 ML VIAL IV (00:59)
[2018-11-17] MEDS: MORPHINE 4 MG/ML INJ IV ×2 (00:59→22:54)
[2018-11-17] MEDS: ACETAMINOPHEN 325 MG TABLET 650 MG PO ×3 (01:07→16:24)
--- NOTE | 2018-11-17 02:24 | PC.NURSE ---
Pt is A and O x 4, tachy at 100-114, slight fever of 99.3 F and O2 sat high 80's on 4L NC at shift change. Facial skin was flushed, she often was gasping and mouth breathing. LS crackles and some ronchi. +1 bilat ankle edema. Pt had incessant cough. Pt given albuterol breathing treatment, switched to simple mask, then 40 mg IVP lasix, 4 mg IVP MS and 650 mg po APAP. Also received one Cepecol throat lozenge and 100 mg Tessalon Sylvie, po. Pt is afebrile, has voided 500 mLs plus incontinent brief, O2 sat in mid 90's. LS unchanged and continues to be tachy at 100-114. Facial skin is normal. Pt states she feels better. CBG have been in 300's all previous shifts, trending down now with regular insulin. Cough has subsided. Still waiting on sputum sample from patient, she was given Muconix on evening shift.
--- NOTE | 2018-11-17 03:36 | PC.NURSE ---
Correction: Pt on Venti mask: 50% FiO2, 15L.
[2018-11-17] MEDS: INSULIN ASPART 100 UNIT/ML 10ML VIAL 7 UNIT SUBCUT (04:43)
[2018-11-17 05:40] LABS: Add Manual Diff / Slide Review NO; Basophils Absolute Auto 100 /uL (0-100); Basophils Percent Auto 1.1 % (0-2); Eosinophils Absolute Auto 0 /uL (0-450); Eosinophils Percent Auto 0.3 % (2-4); Hematocrit 34.9 % (36-46); Hemoglobin 11.6 g/dL (12.0-16.0); Lymphocytes Absolute Auto 2000 /uL (1100-4500); Lymphocytes Percent Auto 14.6 % (25-40); Mean Corpuscular HGB Conc 33.3 % (30-36); Mean Corpuscular Volume 87.3 fL (80-100); Monocytes Absolute Auto 1100 /uL (0-900); Monocytes Percent Auto 7.9 % (3-14); Neutrophils Absolute Auto 10400 /uL (1500-7000); Neutrophils Percent Auto 76.1 % (50-75); Platelet Count 245 X10^3/uL (150-400); Red Cell Distribution Width 15.1 % (11.6-14.8); White Blood Cell Count 13.7 X10^3/uL (4.5-11.0)
[2018-11-17 05:53] LABS: Alanine Aminotransferase 18 IU/L (9-52); Albumin 3.9 g/dL (3.5-5.0); Albumin Globulin Ratio 1.1 (1.0-2.8); Alkaline Phosphatase 62 U/L (38-126); Aspartate Aminotransferase 27 IU/L (14-36); BUN Creatinine Ratio 16.3 (6-22); Bilirubin Total 0.9 mg/dL (0.2-1.3); Blood Urea Nitrogen 13 mg/dL (7-17); Calcium 8.5 mg/dL (8.4-10.2); Carbon Dioxide 29 mmol/L (22-32); Chloride 94 mmol/L (98-107); Estimated Glomerular Filt Rate > 60.0 mL/min (>60); Globulin 3.6 g/dL (1.7-4.1); Glucose 287 mg/dL (80-110); HEMOLYSIS < 15 (0-50); Potassium 3.8 mmol/L (3.4-5.1); Sodium 134 mmol/L (137-145); Total Protein 7.5 g/dL (6.3-8.2)
[2018-11-17 06:11] LABS: Procalcitonin 0.35 ng/mL (<0.5)
--- NOTE | 2018-11-17 08:14 | PC.NURSE ---
transfer arrived on shift, alerted by DISPATCHER SERVICE that pt had sats in mid 60's. she had been transfered to [facility]. She was very SOB and felt nauseated. O2 had become disconnected, she was off O2 for about 1 min. Reconncected and was only able to get sats to mid 80's. notified RT and MD. RT placed pt on 15L non-rebreather and sats up to 96%. Pt taken down to ICU for further monitoring.
--- NOTE | 2018-11-17 08:25 | P.PN_ITS ---
Subjective Date Patient Seen: 11/17/18 Interval history: Nara Trevizo is a 73-year-old female with a past medical history significant for hypertension, diabetes mellitus type 2, insulin using and poorly controlled with diabetic neuropathy, prior CVA in 2000 without residual deficits, obesity, OA, anxiety and depression with history of suicide attempt, former smoker who presented for worsening shortness of breath and nonproductive dry cough. Interval history: The patient was short of breath overnight received 40 mg IV Lasix x1. Then early this morning the patient desatted down to mid 60s when transferring to bedside commode due to supplemental oxygen disconnection. The patient was placed back on oxygen and was slow to recover with oxygen saturations in the mid 80s prompting non-rebreather mask and transfer to ICU. The patient reports that she feels miserable. She is mildly confused and menta ting slow. She endorses headache and back pain. She also has slight nausea. She she continues to have nonproductive cough. She denies chest pain, abdominal pain, fever, chills, dysuria, diarrhea or constipation. The patient is voiding and eliminating without difficulty. She is up and out of bed minimally. Exam Vital Signs (past 8 hours): - 11/17/18 00:33 11/17/18 00:50 11/17/18 01:07 Temperature 99.3 F 99.3 F Pulse Rate Respiratory Rate Blood Pressure Pulse Oximetry 92 11/17/18 02:13 11/17/18 02:14 11/17/18 02:15 Temperature 97.9 F 97.9 F 97.9 F Pulse Rate Respiratory Rate Blood Pressure Pulse Oximetry 11/17/18 03:01 11/17/18 03:49 11/17/18 05:15 Temperature 99.1 F Pulse Rate 100 H 105 H Respiratory Rate 20 18 Blood Pressure 141/70 H Pulse Oximetry 94 91 93 Fraction of Inspired Oxygen 50 Oxygen Delivery Method Venturi Mask Oxygen Flow Rate 15 Narrative Exam Narrative: General: Older female sitting in bed and in no acute distress, appears ill and uncomfortable, mild diaphoresis, well-developed, well-nourished, mild confusion with slow mentation. HEENT: Normocephalic, atraumatic. External ears without defect. Pupils equal, round, and reactive to light. Anicteric sclerae, moist conjunctivae, and no lid lag. Neck: Supple with full range of motion. No lymphadenopathy or thyromegaly. Cardiovascular: Regular rhythm, tachycardic, without murmurs, rubs, or gallops appreciated Pulmonary: Coarse breath sounds throughout with minimal air movement. Normal respiratory effort with no use of accessory muscles. Abdomen: Bowel tones present. Soft, nontender, nondistended. No hepatosplenomegaly or masses appreciated. Extremities: No clubbing or cyanosis. Trace bipedal edema. Skin: Normal temperature, turgor, and texture; no rash, ulcers, or subcutaneous nodules appreciated. Neurological: Cranial nerves grossly intact. Psychiatric: Alert and oriented to person, place, and time. Mild confusion and slow mentation. Objective Labs Result Diagrams: 11/17/18 05:21 11/17/18 05:21 Labs: Laboratory Results - last 24 hr 11/16/18 11/16/18 11/16/18 07:55 07:55 10:00 WBC RBC Hgb Hct MCV MCH MCHC RDW Plt Count Neut % (Auto) Lymph % (Auto) [place] % (Auto) Eos % (Auto) Baso % (Auto) Neut # (Auto) Lymph # (Auto) [place] # (Auto) Eos # (Auto) Baso # (Auto) ABG pH ABG pCO2 ABG pO2 ABG HCO3 ABG Total CO2 ABG O2 Saturation ABG Base Excess FiO2 Sodium Potassium Chloride Carbon Dioxide BUN Creatinine Estimated GFR BUN/Creatinine Ratio Glucose Lactate 1.8 Calcium Magnesium Total Bilirubin AST ALT Alkaline Phosphatase Total Protein Albumin Globulin Albumin/Globulin Ratio Procalcitonin 0.05 Chlamy pneumoniae PCR Not detected Adenovirus (PCR) Not detected B.parapertussis DNA PCR Not detected Coronavirus OC43 (PCR) Not detected Coronavirus HKU1 (PCR) Not detected Coronavirus 229E (PCR) Not detected Coronavirus NL63 (PCR) Not detected Human Metapneumovir PCR Not detected Influenza Type A (PCR) Not detected Influenza Type B (PCR) Not detected M. pneumoniae (PCR) Not detected Parainfluenza 1 (PCR) Not detected Parainfluenza 2 (PCR) Not detected Parainfluenza 3 (PCR) Not detected Parainfluenza 4 (PCR) Not detected RSV (PCR) Not detected Entero/Rhino (PCR) Not detected 11/17/18 11/17/18 11/17/18 00:12 05:21 05:21 WBC 13.7 H RBC 4.00 Hgb 11.6 L Hct 34.9 L MCV 87.3 MCH 29.0 MCHC 33.3 RDW 15.1 H Plt Count 245 Neut % (Auto) 76.1 H Lymph % (Auto) 14.6 L [place] % (Auto) 7.9 Eos % (Auto) 0.3 L Baso % (Auto) 1.1 Neut # (Auto) 18423 H Lymph # (Auto) 2000 [place] # (Auto) 1100 H Eos # (Auto) 0 Baso # (Auto) 100 ABG pH 7.48 H ABG pCO2 32.0 L ABG pO2 71 L ABG HCO3 24 ABG Total CO2 25 ABG O2 Saturation 95 ABG Base Excess 0.0 FiO2 50 Sodium Potassium Chloride Carbon Dioxide BUN Creatinine Estimated GFR BUN/Creatinine Ratio Glucose Lactate Calcium Magnesium 2.0 Total Bilirubin AST ALT Alkaline Phosphatase Total Protein Albumin Globulin Albumin/Globulin Ratio Procalcitonin Chlamy pneumoniae PCR Adenovirus (PCR) B.parapertussis DNA PCR Coronavirus OC43 (PCR) Coronavirus HKU1 (PCR) Coronavirus 229E (PCR) Coronavirus NL63 (PCR) Human Metapneumovir PCR Influenza Type A (PCR) Influenza Type B (PCR) M. pneumoniae (PCR) Parainfluenza 1 (PCR) Parainfluenza 2 (PCR) Parainfluenza 3 (PCR) Parainfluenza 4 (PCR) RSV (PCR) Entero/Rhino (PCR) 11/17/18 11/17/18 05:21 05:21 WBC RBC Hgb Hct MCV MCH MCHC RDW Plt Count Neut % (Auto) Lymph % (Auto) [place] % (Auto) Eos % (Auto) Baso % (Auto) Neut # (Auto) Lymph # (Auto) [place] # (Auto) Eos # (Auto) Baso # (Auto) ABG pH ABG pCO2 ABG pO2 ABG HCO3 ABG Total CO2 ABG O2 Saturation ABG Base Excess FiO2 Sodium 134 L Potassium 3.8 Chloride 94 L Carbon Dioxide 29 BUN 13 Creatinine 0.80 Estimated GFR > 60.0 BUN/Creatinine Ratio 16.3 Glucose 287 H Lactate Calcium 8.5 Magnesium Total Bilirubin 0.9 AST 27 ALT 18 Alkaline Phosphatase 62 Total Protein 7.5 Albumin 3.9 Globulin 3.6 Albumin/Globulin Ratio 1.1 Procalcitonin 0.35 Chlamy pneumoniae PCR Adenovirus (PCR) B.parapertussis DNA PCR Coronavirus OC43 (PCR) Coronavirus HKU1 (PCR) Coronavirus 229E (PCR) Coronavirus NL63 (PCR) Human Metapneumovir PCR Influenza Type A (PCR) Influenza Type B (PCR) M. pneumoniae (PCR) Parainfluenza 1 (PCR) Parainfluenza 2 (PCR) Parainfluenza 3 (PCR) Parainfluenza 4 (PCR) RSV (PCR) Entero/Rhino (PCR) Assessment & Plan Assessment & Plan narrative: Nara Trevizo is a 73-year-old female with a past medical history significant for hypertension, diabetes mellitus type 2, insulin using and poorly controlled with diabetic neuropathy, prior CVA in 2000 without residual deficits, obesity, OA, anxiety and depression with history of suicide attempt, former smoker who presented for worsening shortness of breath and nonproductive dry cough. 1. Late acute sepsis, not present on admission. Active. -Patient became increasingly tachycardic, tachypneic, hypoxemic, with WBC 13.7. -Broadened antibiotic coverage with meropenem 2 g twice daily and continue azithromycin x3 doses. -Ordered lactic acid and troponin, pending. 2. Acute bilateral multifocal bacterial pneumonia, present on admission. A ctive. -Patient presented with worsening shortness of breath, nonproductive cough with chest tightness and subjective fevers. -CTA was negative for pulmonary emboli and demonstrated bilateral multifocal patchy pneumonia. -ordered complete pneumonia workup including: Respiratory viral PCR negative. Strep pneumoniae and Legionella urine antigens pending. Sputum culture not yet obtained. Blood culture x2 has no growth to date. -Consulted respiratory therapy for supplemental O2 management and nebulizer treatments. -Continue duo nebs every 4 hr while awake, albuterol nebs every 2 hr as needed, PEP, and chest physiotherapy 3 times daily. 3. Acute hypoxemic respiratory failure, present on admission. Active. Acute respiratory failure with hypoxia, present on admission -Secondary to multifocal pneumonia -Continue high-flow oxygen and titrate as needed to keep oxygen saturation 88- 92%. Ordered ABG, pending. -Ordered echocardiogram, pending. Patient received 40 mg IV Lasix x1 overnight with improvement in breathing. 4. Acute hyponatremia, present on admission. Active. -Secondary to hyperglycemia and acute lung infection. -Initial sodium one hundred thirty-six. 5. Diabetes mellitus type 2, insulin using, poorly controlled and chronic, present on admission. Stable. -Presented hyperglycemic with a glucose of 371. Patient has complication of diabetic neuropathy and previous diabetic foot ulcer. -hemoglobin A1c 13.3% -Continue [facility] blood glucose checks and medium dose correction scale insulin. -Continue home NPH regimen. -Ordered heart healthy/carbohydrate consistent diet. -Continue home gabapentin. 6. Elevated D-dimer, present on admission. CTA negative for pulmonary embolism. 7. History of CVA with residual deficit of left lower extremity mild weakness and footdrop, chronic, present on admission. Stable. -Continue risk factor modification with Plavix. -Ordered PT and OT evaluation and treatment. 8. Chronic lumbar pain, present on admission. Stable. -Controlled with a spinal stimulator. 9. Anxiety and depression, chronic, present on admission. Stable. -Continue home venlafaxine. Disposition: Patient is now critically ill requiring greater than 30 min of ICU care. Continue broad-spectrum IV antibiotics and high-flow oxygen. Quality VTE Deep Vein Thrombosis/Pulmonary Embolism Present on Admission: No
[2018-11-17 08:43] LABS: Urine Amphetamines Negative (Negative); Urine Barbiturates Negative (Negative); Urine Benzodiazepines Negative (Negative); Urine Cocaine Negative (Negative); Urine MDMA Negative (Negative); Urine Methadone Negative (Negative); Urine Methamphetamines Negative (Negative); Urine Morphine/Opi cutoff 2000 Negative (Negative); Urine Oxycodone Negative (Negative); Urine Phencyclidine Positive (Negative); Urine Tetrahydrocannabinol Positive (Negative); Urine Tricyclic Antidepressant Negative (Negative)
[2018-11-17] MEDS: MEROPENEM 2 GM in SODIUM CHLORIDE 0.9% 100 ML 200 ML IV ×2 (08:56→21:04)
[2018-11-17] MEDS: CLOPIDOGREL 75 MG TABLET PO (09:01)
[2018-11-17] MEDS: GABAPENTIN 600 MG TABLET 1200 MG PO ×3 (09:02→21:04)
[2018-11-17] MEDS: INSULIN ASPART 100 UNIT/ML INSULN PEN SUBCUT ×4 (09:02→21:07)
[2018-11-17] MEDS: HEPARIN 5,000 UNIT/ML VIAL 5000 UNIT SUBCUT ×2 (09:03→21:04)
[2018-11-17] MEDS: INSULIN NPH 100 UNIT/ML VIAL 50 UNIT SUBCUT ×2 (09:03→21:09)
[2018-11-17] MEDS: VENLAFAXINE ER 75 MG CAP 300 MG PO (09:04)
[2018-11-17 09:56] LABS: Lactate (Lactic Acid) 1.4 mmol/L (0.7-2.1)
--- NOTE | 2018-11-17 10:33 | CM.DANOTE ---
DCP: Case received, EMR reviewed and met with patient. Introduced self and role. DCP template completed with information currently available. Patient is a 73 year old female who admitted yesterday morning to the care of the hospitalist team. PCP: Shaylee Baltazar. Payer: confirmed: Medicare/[employer]. Patient came to the hospital with symptoms of shortness of breath. Patient holds diagnosis of Multi-focal Pneumonia. She has history of COPD, but does not use oxygen at home. Spoke to patient. Alert and oriented. Stated that she lives alone, for she is , but her , Marcella, comes by to help her out. Patient confirmed that she does her own showers and meals, and also, has a shower bench. Her ex- helps with shopping, and appointments. P: DCP to follow closely. Will collaborate with physical therapy team. Patient may need senior living upon discharge. Evonne Meza RN/Licensed Practical Nurse Clinic Nurse
[2018-11-17] MEDS: AZITHROMYCIN 500 MG in DEXTROSE 5% IN WATER 250 ML IV (10:38)
[2018-11-17 11:41] LABS: pH ABG 7.42 (7.35-7.45)
[2018-11-17 11:42] LABS: HCO3 ABG 23 mmol/L (22-26); Oxygen Saturation ABG 95 % (95-100); PCO2 ABG 34.7 mmHg (35-45); PO2 ABG 72 mmHg (80-100); TCO2 ABG 24 mmol/L (21-31)
[2018-11-17 11:45] LABS: Fractionated Inspired Oxygen 60
--- NOTE | 2018-11-17 13:27 | PT.IPTN ---
Current Diagnoses Pneumonia, unspecified organism (11/16/18) Physical Therapy Treatment Note Notes Per interdisciplinary rounds, will hold PT eval today and attempt tomorrow.
--- NOTE | 2018-11-17 14:22 | PC.NURSE ---
Rec'd pt from acute care to room 105 at 0810 on 15L NRB with SPO2 95% and a RR 25. Bedside report from RUEL Esquivel. Per report, pt was up to [facility], oxygen became disconnected, and pt experienced de sats to 60% with associated shortness of breath. Pt is currently awake, alert, and oriented x3 with occasional delayed responses. She is moving all extremites with equal strength to command. She is making her needs known with clear, logical speech. Per report, pt with mild left sided weakness and hx of stroke. Placed pt on high flow nasal cannula and titrated to 10L for SPO2 95% at rest. Lung canales are course bilaterally and pt has a non productive cough. Orders received for troponin, lactate, and abg as well as abx. Obtained blood from new IV start and began abx. Noted pO2 72 by ABG and increased flow rate to 12LPM. Called to Dr. Quinn and reported elevated BG, reviewed insulin regimen, troponin, pt denies cardiac symptoms, abg results and O2 requirements, and updated her that echo was completed and results pending. Orders rec'd for EKG and troponin.
[2018-11-17 14:28] LABS: Troponin I 0.152 ng/mL (0.01-0.034)
[2018-11-17] MEDS: METOPROLOL TARTRATE 5 MG/5 ML INJ IV (19:53)
[2018-11-17 20:38] LABS: Troponin I 0.119 ng/mL (0.01-0.034)
[2018-11-17] MEDS: SODIUM CHLORIDE 0.9% FLUSH 10 ML IV (21:07)
--- NOTE | 2018-11-17 22:12 | PC.NURSE ---
Addendum entered by Valarie Beal R.N. 11/17/18 23:09: sudden onset of epigastric pain rated 9/10. concern for cardiac event due to troponin bump, diabetes, female gender. EKG done. Kevon CRAWFORD notified. Morphine given after EKG done. Original Note: Addendum entered by Valarie Beal R.N. 11/17/18 22:57: Original Note: emily note pt on 12 L high flow cannula. Expectorating some yellow phlegm with pink streaks. When up to [facility], pt sats drop as low as 79% with slow recovery. 21:30- pt with more coughing after nebulizer. Increased amounts of phlegm production. pt c/o pain with coughing. O2 sats down to 79%, very slow rise in sats. Called RT for albuterol tx. Still with cough and sats ranging from 77-91%. Called [facility] to update. Medicated pt with tessalon jose. Albuterol neb given. Repositioned pt to high [place].
[2018-11-17] MEDS: ALBUTEROL 1.25 MG/3 ML NEB (PEDIATRIC) INH (23:07)
[2018-11-17] MEDS: LEVALBUTEROL 1.25 MG/0.5 ML NEB INH (23:12)
[2018-11-17] MEDS: IPRATROPIUM 0.5 MG/2.5 ML NEB INH (23:12)
[2018-11-17 23:39] LABS: Creatine Kinase 289 U/L (30-135)
[2018-11-17 23:51] LABS: Troponin I 0.111 ng/mL (0.01-0.034)
[2018-11-17 23:54] LABS: CKMB % Relative Index 0.3 % (1.5-5.0); Creatine Kinase MB 0.94 ng/mL (<2.37)
[2018-11-18] VITALS (15 sets, daily range): BP systolic 120–179; BP diastolic 50–109; PULSE 93–1019; RESP 10–26; TEMP 30.7–37.1; O2SAT 87–96
--- NOTE | 2018-11-18 | DI.RAD.S_ITS ---
PROCEDURE: XR CHEST 1V INDICATIONS: shortness of breath, pneumonia TECHNIQUE: One view of the chest was acquired. COMPARISON: [facility], CR, XR CHEST 1V, 11/16/2018, 1:47. FINDINGS: Surgical changes and devices: Spinal stimulator leads in place. Lungs and pleura: Persistent bilateral alveolar opacities in both upper and lower lungs, worsened in extent and density. No visible pleural effusions or pneumothorax.. Mediastinum: Mediastinal contours appear normal. Heart size is normal. Bones and chest wall: No suspicious bony lesions. Overlying soft tissues appear unremarkable. IMPRESSION: Worsening bilateral alveolar opacities suggestive of pneumonia, but there may be superimposed edema. Dictated by: Khushi Beltre M.D. on 11/18/2018 at 8:40 Approved by: Khushi Beltre M.D. on 11/18/2018 at 8:42
[2018-11-18] MEDS: PANTOPRAZOLE 40 MG VIAL 20 MG IV ×2 (00:12→08:43)
[2018-11-18] MEDS: ACETAMINOPHEN 325 MG TABLET 650 MG PO (00:13)
[2018-11-18] MEDS: SODIUM CHLORIDE 0.9% FLUSH 10 ML IV ×3 (02:11→08:43)
[2018-11-18] MEDS: METOPROLOL TARTRATE 5 MG/5 ML INJ IV ×2 (02:11→08:19)
[2018-11-18] MEDS: IPRATROPIUM 0.5 MG/2.5 ML NEB INH ×3 (03:09→09:00)
[2018-11-18] MEDS: LEVALBUTEROL 1.25 MG/0.5 ML NEB INH ×3 (03:09→09:00)
[2018-11-18 04:07] LABS: Fractionated Inspired Oxygen 75; HCO3 ABG 28 mmol/L (22-26); Oxygen Saturation ABG 93 % (95-100); PO2 ABG 65 mmHg (80-100); TCO2 ABG 29 mmol/L (21-31)
[2018-11-18 04:08] LABS: pH ABG 7.43 (7.35-7.45)
[2018-11-18 05:09] LABS: Add Manual Diff / Slide Review NO; Basophils Absolute Auto 100 /uL (0-100); Basophils Percent Auto 0.5 % (0-2); Eosinophils Absolute Auto 0 /uL (0-450); Eosinophils Percent Auto 0.2 % (2-4); Hematocrit 33.8 % (36-46); Hemoglobin 11.3 g/dL (12.0-16.0); Lymphocytes Absolute Auto 1900 /uL (1100-4500); Mean Corpuscular HGB Conc 33.6 % (30-36); Mean Corpuscular Volume 86.4 fL (80-100); Monocytes Absolute Auto 900 /uL (0-900); Monocytes Percent Auto 5.5 % (3-14); Neutrophils Absolute Auto 14200 /uL (1500-7000); Neutrophils Percent Auto 82.8 % (50-75); Platelet Count 270 X10^3/uL (150-400); Red Blood Cell Count 3.91 X10^6/uL (4.0-5.2); Red Cell Distribution Width 15.1 % (11.6-14.8); White Blood Cell Count 17.2 X10^3/uL (4.5-11.0)
[2018-11-18 05:13] LABS: BUN Creatinine Ratio 17.5 (6-22); Blood Urea Nitrogen 14 mg/dL (7-17); Calcium 8.4 mg/dL (8.4-10.2); Carbon Dioxide 31 mmol/L (22-32); Chloride 94 mmol/L (98-107); Estimated Glomerular Filt Rate > 60.0 mL/min (>60); Glucose 191 mg/dL (80-110); HEMOLYSIS < 15 (0-50); Potassium 3.9 mmol/L (3.4-5.1); Sodium 134 mmol/L (137-145)
[2018-11-18 05:20] LABS: Hemoglobin A1C% w Est Avg Glu 9.2 % (4.0-6.0)
[2018-11-18] MEDS: MORPHINE 4 MG/ML INJ IV (05:39)
[2018-11-18] MEDS: ONDANSETRON 4 MG ODT PO (05:39)
[2018-11-18] MEDS: BENZONATATE 100 MG CAPSULE PO (05:42)
[2018-11-18] MEDS: methylPREDNISolone 125 MG/2 ML VIAL IV (05:42)
[2018-11-18 05:51] LABS: Procalcitonin 1.06 ng/mL (<0.5)
[2018-11-18] MEDS: FUROSEMIDE 40 MG/4 ML VIAL IV (06:30)
--- NOTE | 2018-11-18 06:50 | PM.PN.1 ---
Subjective Date Patient Seen: 11/18/18 Interval history: Nara Trevizo is a 73-year-old female with a past medical history significant for hypertension, diabetes mellitus type 2, insulin using and poorly controlled with diabetic neuropathy, prior CVA in 2000 without residual deficits, obesity, OA, anxiety and depression with history of suicide attempt, former smoker who presented for worsening shortness of breath and nonproductive dry cough. Interval history:Overnight the patient continued to be hypoxemic in desaturate down to the low 80s. She was wheezing with crackles bilaterally at her bases. Chest x-ray was performed which demonstrated flash pulmonary edema. She was diuresed with 40 mg IV Lasix x1 and given methylprednisolone 125 mg IV x1. She was transitioned from high-flow oxygen to BiPAP. The patient reports that she feels miserable. She is mildly confused and mentating slow. She endorses headache and back pain. She also has slight nausea. She she continues to have nonproductive cough. She denies chest pain, abdominal pain, fever, chills, dysuria, diarrhea or constipation. The patient is voiding and eliminating without difficulty. She is up and out of bed minimally. Exam Vital Signs (past 8 hours): - 11/17/18 23:12 11/17/18 23:40 11/18/18 00:00 Temperature Pulse Rate 111 H 109 H Respiratory Rate 14 20 Blood Pressure Pulse Oximetry 93 93 90 L 11/18/18 00:15 11/18/18 02:23 11/18/18 03:00 Temperature 98.8 F Pulse Rate 107 H 95 H Respiratory Rate 24 21 Blood Pressure 137/82 120/50 L Pulse Oximetry 93 91 88 L 11/18/18 03:09 11/18/18 04:02 11/18/18 06:00 Temperature Pulse Rate 104 H 109 H Respiratory Rate 20 23 Blood Pressure Pulse Oximetry 92 93 95 11/18/18 06:05 11/18/18 06:29 Temperature Pulse Rate 111 H Respiratory Rate 17 Blood Pressure 179/109 H 158/76 H Pulse Oximetry 95 Fraction of Inspired Oxygen 80 Oxygen Delivery Method Heated High Flow Oxygen Flow Rate 55 Narrative Exam Narrative: General: Older female sitting in bed and in no acute distress, appears ill and uncomfortable, mild diaphoresis, well-developed, well-nourished, mild confusion with slow mentation. HEENT: Normocephalic, atraumatic. External ears without defect. Pupils equal, round, and reactive to light. Anicteric sclerae, moist conjunctivae, and no lid lag. Neck: Supple with full range of motion. No lymphadenopathy or thyromegaly. Cardiovascular: Regular rhythm, tachycardic, without murmurs, rubs, or gallops appreciated Pulmonary: Coarse breath sounds throughout with minimal air movement. Normal respiratory effort with no use of accessory muscles. Abdomen: Bowel tones present. Soft, nontender, nondistended. No hepatosplenomegaly or masses appreciated. Extremities: No clubbing or cyanosis. Trace bipedal edema. Skin: Normal temperature, turgor, and texture; no rash, ulcers, or subcutaneous nodules appreciated. Neurological: Cranial nerves grossly intact. Psychiatric: Alert and oriented to person, place, and time. Mild confusion and slow mentation. Objective Labs Result Diagrams: 11/18/18 04:41 11/18/18 04:41 Labs: Laboratory Results - last 24 hr 11/16/18 11/17/18 11/17/18 12:00 08:15 09:00 WBC RBC Hgb Hct MCV MCH MCHC RDW Plt Count Neut % (Auto) Lymph % (Auto) [place] % (Auto) Eos % (Auto) Baso % (Auto) Neut # (Auto) Lymph # (Auto) [place] # (Auto) Eos # (Auto) Baso # (Auto) ABG pH ABG pCO2 ABG pO2 ABG HCO3 ABG Total CO2 ABG O2 Saturation ABG Base Excess FiO2 Sodium Potassium Chloride Carbon Dioxide BUN Creatinine Estimated GFR BUN/Creatinine Ratio Glucose Hemoglobin A1c Lactate Calcium Total Creatine Kinase CK-MB (CK-2) CK-MB (CK-2) Rel Index Troponin I 0.150 H* Procalcitonin Nasal Screen MRSA (PCR) Negative for mrsa Urine Opiates Screen Negative Ur Oxycodone Screen Negative Urine Methadone Screen Negative Ur Barbiturates Screen Negative U Tricyclic Antidepress Negative Ur Phencyclidine Scrn Positive H Ur Amphetamines Screen Negative U Methamphetamines Scrn Negative Ur MDMA Scrn (Ecstasy) Negative U Benzodiazepines Scrn Negative Urine Cocaine Screen Negative U Marijuana (THC) Screen Positive H 11/17/18 11/17/18 11/17/18 09:00 11:10 20:09 WBC RBC Hgb Hct MCV MCH MCHC RDW Plt Count Neut % (Auto) Lymph % (Auto) [place] % (Auto) Eos % (Auto) Baso % (Auto) Neut # (Auto) Lymph # (Auto) [place] # (Auto) Eos # (Auto) Baso # (Auto) ABG pH 7.42 ABG pCO2 34.7 L ABG pO2 72 L ABG HCO3 23 ABG Total CO2 24 ABG O2 Saturation 95 ABG Base Excess -2.0 FiO2 60 Sodium Potassium Chloride Carbon Dioxide BUN Creatinine Estimated GFR BUN/Creatinine Ratio Glucose Hemoglobin A1c Lactate 1.4 Calcium Total Creatine Kinase CK-MB (CK-2) CK-MB (CK-2) Rel Index Troponin I 0.119 H Procalcitonin Nasal Screen MRSA (PCR) Urine Opiates Screen Ur Oxycodone Screen Urine Methadone Screen Ur Barbiturates Screen U Tricyclic Antidepress Ur Phencyclidine Scrn Ur Amphetamines Screen U Methamphetamines Scrn Ur MDMA Scrn (Ecstasy) U Benzodiazepines Scrn Urine Cocaine Screen U Marijuana (THC) Screen 11/17/18 11/17/18 11/18/18 23:20 Unknown 03:44 WBC RBC Hgb Hct MCV MCH MCHC RDW Plt Count Neut % (Auto) Lymph % (Auto) [place] % (Auto) Eos % (Auto) Baso % (Auto) Neut # (Auto) Lymph # (Auto) [place] # (Auto) Eos # (Auto) Baso # (Auto) ABG pH 7.43 ABG pCO2 41.0 ABG pO2 65 L ABG HCO3 28 H ABG Total CO2 29 ABG O2 Saturation 93 L ABG Base Excess 3.0 H FiO2 75 Sodium Potassium Chloride Carbon Dioxide BUN Creatinine Estimated GFR BUN/Creatinine Ratio Glucose Hemoglobin A1c Lactate Calcium Total Creatine Kinase 289 H CK-MB (CK-2) 0.94 CK-MB (CK-2) Rel Index 0.3 L Troponin I 0.111 H 0.152 H* Procalcitonin Nasal Screen MRSA (PCR) Urine Opiates Screen Ur Oxycodone Screen Urine Methadone Screen Ur Barbiturates Screen U Tricyclic Antidepress Ur Phencyclidine Scrn Ur Amphetamines Screen U Methamphetamines Scrn Ur MDMA Scrn (Ecstasy) U Benzodiazepines Scrn Urine Cocaine Screen U Marijuana (THC) Screen 11/18/18 11/18/18 11/18/18 04:41 04:41 04:41 WBC 17.2 H RBC 3.91 L Hgb 11.3 L Hct 33.8 L MCV 86.4 MCH 29.0 MCHC 33.6 RDW 15.1 H Plt Count 270 Neut % (Auto) 82.8 H Lymph % (Auto) 11.0 L [place] % (Auto) 5.5 Eos % (Auto) 0.2 L Baso % (Auto) 0.5 Neut # (Auto) 82613 H Lymph # (Auto) 1900 [place] # (Auto) 900 Eos # (Auto) 0 Baso # (Auto) 100 ABG pH ABG pCO2 ABG pO2 ABG HCO3 ABG Total CO2 ABG O2 Saturation ABG Base Excess FiO2 Sodium 134 L Potassium 3.9 Chloride 94 L Carbon Dioxide 31 BUN 14 Creatinine 0.80 Estimated GFR > 60.0 BUN/Creatinine Ratio 17.5 Glucose 191 H Hemoglobin A1c Lactate Calcium 8.4 Total Creatine Kinase CK-MB (CK-2) CK-MB (CK-2) Rel Index Troponin I Procalcitonin 1.06 H Nasal Screen MRSA (PCR) Urine Opiates Screen Ur Oxycodone Screen Urine Methadone Screen Ur Barbiturates Screen U Tricyclic Antidepress Ur Phencyclidine Scrn Ur Amphetamines Screen U Methamphetamines Scrn Ur MDMA Scrn (Ecstasy) U Benzodiazepines Scrn Urine Cocaine Screen U Marijuana (THC) Screen 11/18/18 04:41 WBC RBC Hgb Hct MCV MCH MCHC RDW Plt Count Neut % (Auto) Lymph % (Auto) [place] % (Auto) Eos % (Auto) Baso % (Auto) Neut # (Auto) Lymph # (Auto) [place] # (Auto) Eos # (Auto) Baso # (Auto) ABG pH ABG pCO2 ABG pO2 ABG HCO3 ABG Total CO2 ABG O2 Saturation ABG Base Excess FiO2 Sodium Potassium Chloride Carbon Dioxide BUN Creatinine Estimated GFR BUN/Creatinine Ratio Glucose Hemoglobin A1c 9.2 H Lactate Calcium Total Creatine Kinase CK-MB (CK-2) CK-MB (CK-2) Rel Index Troponin I Procalcitonin Nasal Screen MRSA (PCR) Urine Opiates Screen Ur Oxycodone Screen Urine Methadone Screen Ur Barbiturates Screen U Tricyclic Antidepress Ur Phencyclidine Scrn Ur Amphetamines Screen U Methamphetamines Scrn Ur MDMA Scrn (Ecstasy) U Benzodiazepines Scrn Urine Cocaine Screen U Marijuana (THC) Screen Assessment & Plan Assessment & Plan narrative: Nara Trevizo is a 73-year-old female with a past medical history significant for hypertension, diabetes mellitus type 2, insulin using and poorly controlled with diabetic neuropathy, prior CVA in 2000 without residual deficits, obesity, OA, anxiety and depression with history of suicide attempt, former smoker who presented for worsening shortness of breath and nonproductive dry cough. 1. Late acute sepsis, not present on admission. Active. -Patient became increasingly tachycardic, tachypneic, hypoxemic, with WBC 13.7. -Broadened antibiotic coverage with meropenem 2 g twice daily and continue azithromycin x3 doses. -Ordered lactic acid and troponin, pending. 2. Acute bilateral multifocal bacterial pneumonia, present on admission. Active. -Patient presented with worsening shortness of breath, nonproductive cough with chest tightness and subjective fevers. -CTA was negative for pulmonary emboli and demonstrated bilateral multifocal patchy pneumonia. -ordered complete pneumonia workup including: Respiratory viral PCR negative. Strep pneumoniae and Legionella urine antigens pending. Sputum culture not yet obtained. Blood culture x2 has no growth to date. -Consulted respiratory therapy for supplemental O2 management and nebulizer treatments. -Continue duo nebs every 4 hr while awake, albuterol nebs every 2 hr as needed, PEP, and chest physiotherapy 3 times daily. 3. Acute hypoxemic respiratory failure, present on admission. Active. Acute respiratory failure with hypoxia, present on admission -Secondary to multifocal pneumonia -Continue high-flow oxygen and titrate as needed to keep oxygen saturation 88-92%. Ordered ABG, pending. -Ordered echocardiogram, pending. Patient received 40 mg IV Lasix x1 overnight with improvement in breathing. 4. Acute hyponatremia, present on admission. Active. -Secondary to hyperglycemia and acute lung infection. -Initial sodium one hundred thirty-six. 5. Diabetes mellitus type 2, insulin using, poorly controlled and chronic, present on admission. Stable. -Presented hyperglycemic with a glucose of 371. Patient has complication of diabetic neuropathy and previous diabetic foot ulcer. -hemoglobin A1c 13.3% -Continue [facility] blood glucose checks and medium dose correction scale insulin. -Continue home NPH regimen. -Ordered heart healthy/carbohydrate consistent diet. -Continue home gabapentin. 6. Elevated D-dimer, present on admission. CTA negative for pulmonary embolism. 7. History of CVA with residual deficit of left lower extremity mild weakness and footdrop, chronic, present on admission. Stable. -Continue risk factor modification with Plavix. -Ordered PT and OT evaluation and treatment. 8. Chronic lumbar pain, present on admission. Stable. -Controlled with a spinal stimulator. 9. Anxiety and depression, chronic, present on admission. Stable. -Continue home venlafaxine. Disposition: Patient is now critically ill requiring greater than 30 min of ICU care. Continue broad-spectrum IV antibiotics and high-flow oxygen. Quality VTE Deep Vein Thrombosis/Pulmonary Embolism Present on Admission: No
[2018-11-18 07:59] LABS: Troponin I 0.128 ng/mL (0.01-0.034)
[2018-11-18] MEDS: INSULIN ASPART 100 UNIT/ML INSULN PEN SUBCUT (08:18)
[2018-11-18] MEDS: MEROPENEM 2 GM in SODIUM CHLORIDE 0.9% 100 ML 200 ML IV (08:19)
[2018-11-18] MEDS: INSULIN NPH 100 UNIT/ML VIAL 50 UNIT SUBCUT (08:20)
[2018-11-18 08:34] LABS: Erythrocyte Sedimentation Rate 104 MM/HR (0-20)
[2018-11-18] MEDS: LORazepam 2 MG/ML SYRINGE 0.5 MG IV (08:38)
[2018-11-18] MEDS: HEPARIN 5,000 UNIT/ML VIAL 5000 UNIT SUBCUT (08:45)
[2018-11-18] MEDS: AZITHROMYCIN 500 MG in DEXTROSE 5% IN WATER 250 ML IV (08:46)
[2018-11-18] MEDS: ONDANSETRON 4 MG/2 ML INJ IV (08:51)
--- NOTE | 2018-11-18 08:55 | P.DS_ITS ---
History of Present Illness Date Patient Seen: 11/16/18 Chief complaint: can't breathe, lung congestions, tight chest Narrative: Written by Seamus CRAWFORD: Chief complaint: can't breathe, lung congestions, tight chest Narrative: PMH: HTN, DM 2T, diabetic neuropathy, h/o diabetic foot ulcer, CVA (2000, no deficits), obesity, OA, chronic lumbar pain, spinal stenosis, lumbar post-laminectomy syndrome, anxiety and depression, h/o suicide attempt, prior tobacco dependence, multiple drug allergies PSH: Lumbar spine fusion with postoperative staph infection (2005), spinal stimulator implant The patient is a 73-year-old female with aforementioned PMH-PSH who presented to the ED on 10/19/2018 out of concern for upper respiratory symptoms. Specifically reports cough, chest congestion, chest tightness, difficulty breathing and subjective elevated temperature (99.7F). Symptoms onset is gradual, initially noted 6 days ago, progressively worsening. Notes cough to be with nonproductive w/ minimal purulence, white. No hemoptysis. denies chest pain, palpitations, dizziness, lightheadedness, syncopal events, abdominal pain, nausea, vomiting, and symptoms of cystitis. Two days ago had 4 episodes of diarrhea, without recurrence. Reports stable appetite and weight. On pre sentation to the ED patient was noted to be hypoxic with SpO2 of 85%. Symptoms are worsened and relieved with oxygen/nebulizer treatments. Patient denies underlying history of asthma, COPD, or chronic O2 use. ED Work-Up T 99.3F BP 155/51 HR 98 RR 24 SpO2 85% WBC 10.7 MCV 88.1 MCHC 33.2 HGB 11.7 PLT 245 aPTT 25 PT 11.6 INR 1 D-Dimer 417 BNP 140 Trop 0.019 Influenza A/B negative NA 133 K 4.3 CL 96 CA 8.9 CO2 27 BUN 17 CR 0.9 ratio 18.9 Glu 371 Liver enzymes and Lipase WNL CXR and CTA chest done in ED, results pending, per ED physician (+ multi-focal pneumonia, no pulmonary embolism) In ED received albuterol treatment and azithromycin Other: failed ambulation trial post ED treatment, hypoxic with ambulation Discharge Providers Date of admission: 11/16/18 09:45 Discharge Date: 11/18/18 Primary care physician: Shaylee Baltazar DO Consults: 11/16/18 06:24 Consult to Respiratory Therapy Evaluate & Treat Comment: Physician Instructions: Evaluate and treat 11/17/18 10:40 Consult to Occupational Therapy Evaluate & Treat Comment: Physician Instructions: Evaluate and treat Consult to Physical Therapy Evaluate & Treat Comment: Physician Instructions: Evaluate and Treat 11/18/18 07:41 Consult to Cardiology Routine Comment: Consulting Provider: Alberto Murphy Reason for consultation: Severe MR, CHF, Flash pulm edema Has provider been notified: Yes Discharge provider: Justa Quinn DO Summary Hospital Course: Nara Trevizo is a 73-year-old female with a past medical history significant for hypertension, hyperlipidemia, 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 The patient was placed on supplemental oxygen 3-4 L via nasal cannula. The patient was started on azithromycin 500 mg (for 3 days) and ceftriaxone 2 g daily. She acutely decompensated on 11/17 due to her oxygen disconnecting while up to bedside commode. She was hypoxemic and desatted to low 60s and did not recover quickly. She was placed on high-flow oxygen 12 L via non-rebreather mask. She was transferred to the ICU and her antibiotics were broadened from ceftriaxone to meropenem 2 g every 12 hr. Echocardiogram was performed which demonstrated mildly reduced systolic function with EF 40- 45% , moderate left atrial enlargement, moderate to severe mitral regurg, and an RVSP of 37 mmHg and low CVP. She was stable throughout the course of the day but continued to decompensate throughout the course of the evening. She con tinued to be hypoxemic and her FiO2 was gradually increased. Chest x-ray demonstrated worsening pulmonary infiltrates and flash pulmonary edema. She received Lasix 40 mg IV x1 and methylprednisolone 125 mg x1. She was placed on BiPAP 16/10 with RR 22 and FiO2 slowly titrated up to 90%. Most recent ABG on those settings: PH 7.43, pCO2 41, PO2 65, HC03 27, SpO2 93%. Her vital signs are stable: BP 128/70, RR 20, HR 105, temp 98.6?. She has been given Ativan 0.5 mg IV and Zofran 4 mg IV for anxiety and nausea, respectively. Discussed case with Cardiology, Dr. Alberto Murphy, who does not believe that her flash pulmonary edema is cardiac in etiology and recommended transfer for higher level of care for pulmonology/radio control crane operator and infectious disease workup. Her PaO2/FiO2 ratio is 86 indicative of severe ARDS. Discussed case with radio control crane operator, Dr. Coyle at [facility], who accepts transfer. Nara Trevizo is a 73-year-old female with a past medical history significant for hypertension, diabetes mellitus type 2, insulin using and poorly controlled with diabetic neuropathy, prior CVA in 2000 without residual deficits, obesity, OA, anxiety and depression with history of suicide attempt, former smoker who presented for worsening shortness of breath and nonproductive dry cough. 1. Late acute sepsis, not present on admission. Active. -Patient became increasingly tachycardic, tachypneic, hypoxemic, with WBC 13.7. -Broadened antibiotic coverage with meropenem 2 g twice daily and continue azithromycin x3 doses. -Ordered lactic acid and troponin, pending. 2. Acute bilateral multifocal bacterial pneumonia, present on admission. Active. -Patient presented with worsening shortness of breath, nonproductive cough with chest tightness and subjective fevers. -CTA was negative for pulmonary emboli and demonstrated bilateral multifocal patchy pneumonia. -Ordered complete pneumonia workup including: Respiratory viral PCR negative. Strep pneumoniae and Legionella urine antigens pending. Sputum culture not yet obtained. Blood culture x2 has no growth to date. -Consulted respiratory therapy for supplemental O2/BiPAP management and nebulizer treatments. -Continue duo nebs every 4 hr while awake, albuterol nebs every 2 hr as needed, PEP, and chest physiotherapy 3 times daily. 3. Acute hypoxemic respiratory failure and ARDS, present on admission. Active. -Secondary to multifocal pneumonia. -Continued high-flow oxygen then transitioned to BiPAP due to acute hypoxemia as above. PaO2/FiO2 86 indicative of severe ARDS. -Echocardiogram demonstrated reduced systolic function with EF 40-45%, moderate left atrial enlargement, moderate to severe mitral regurgitation, and RVSP 38 mmHg. Received a total of 80 mg IV Lasix. 4. Acute hyponatremia, present on admission. Active. -Secondary to hyperglycemia and acute lung infection. -Initial sodium 136. 5. Diabetes mellitus type 2, insulin using, poorly controlled and chronic, present on admission. Stable. -Presented hyperglycemic with a glucose of 371. Patient has complication of diabetic neuropathy and previous diabetic foot ulcer. -Hemoglobin A1c 9.2%. -Continued [facility] blood glucose checks and medium dose correction scale insulin. -Continued home NPH regimen. -Ordered heart healthy/carbohydrate consistent diet. -Continued home gabapentin. 6. Elevated D-dimer, present on admission. CTA negative for pulmonary embolism. 7. History of CVA with residual deficit of left lower extremity mild weakness and footdrop, chronic, present on admission. Stable. -Continue risk factor modification with Plavix. -Ordered PT and OT evaluation and treatment. 8. Chronic lumbar pain, present on admission. Stable. -Controlled with a spinal stimulator. 9. Anxiety and depression, chronic, present on admission. Stable. -Continued home venlafaxine. Exam Vital Signs (past 8 hours): - 11/18/18 02:23 11/18/18 03:00 11/18/18 03:09 Temperature Pulse Rate 95 H 104 H Respiratory Rate 21 20 Blood Pressure 120/50 L Pulse Oximetry 91 88 L 92 11/18/18 04:02 11/18/18 06:00 11/18/18 06:05 Temperature Pulse Rate 109 H 111 H Respiratory Rate 23 17 Blood Pressure 179/109 H Pulse Oximetry 93 95 95 11/18/18 06:29 11/18/18 07:10 11/18/18 07:36 Temperature 98.6 F Pulse Rate 105 H Respiratory Rate 20 Blood Pressure 158/76 H 128/70 128/70 Pulse Oximetry 87 L Fraction of Inspired Oxygen 0.90 Oxygen Delivery Method Heated High Flow Oxygen Flow Rate 55 Narrative Exam Narrative: General: Older female sitting in bed and in no acute distress, appears ill and uncomfortable, well-developed, well-nourished, appropriately interactive. HEENT: Normocephalic, atraumatic. External ears without defect. Pupils equal, round, and reactive to light. Anicteric sclerae, moist conjunctivae, and no lid lag. Neck: Supple with full range of motion. No lymphadenopathy or thyromegaly. Cardiovascular: Regular rhythm, mild tachycardia, without murmurs, rubs, or gallops appreciated. Pulmonary: Coarse breath sounds throughout with scattered crackles and minimal air movement. Passive respiration on BiPAP. Abdomen: Soft, bowel sounds present, nontender, nondistended. No hepatosplenomegaly or masses appreciated. Extremities: No clubbing or cyanosis. Trace bipedal edema. Skin: Normal temperature, turgor, and texture; no rash, ulcers, or subcutaneous nodules appreciated. Neurological: Cranial nerves grossly intact. Psychiatric: Alert and oriented to person, place, and time. Objective Labs Result Diagrams: 11/18/18 04:41 11/18/18 04:41 Labs: Laboratory Results - last 24 hr 11/17/18 11/17/18 11/17/18 08:15 09:00 09:00 WBC RBC Hgb Hct MCV MCH MCHC RDW Plt Count Neut % (Auto) Lymph % (Auto) [place] % (Auto) Eos % (Auto) Baso % (Auto) Neut # (Auto) Lymph # (Auto) [place] # (Auto) Eos # (Auto) Baso # (Auto) ESR ABG pH ABG pCO2 ABG pO2 ABG HCO3 ABG Total CO2 ABG O2 Saturation ABG Base Excess FiO2 Sodium Potassium Chloride Carbon Dioxide BUN Creatinine Estimated GFR BUN/Creatinine Ratio Glucose Hemoglobin A1c Lactate 1.4 Calcium Total Creatine Kinase CK-MB (CK-2) CK-MB (CK-2) Rel Index Troponin I 0.150 H* Procalcitonin Nasal Screen MRSA (PCR) Negative for mrsa 11/17/18 11/17/18 11/17/18 11:10 13:30 20:09 WBC RBC Hgb Hct MCV MCH MCHC RDW Plt Count Neut % (Auto) Lymph % (Auto) [place] % (Auto) Eos % (Auto) Baso % (Auto) Neut # (Auto) Lymph # (Auto) [place] # (Auto) Eos # (Auto) Baso # (Auto) ESR ABG pH 7.42 ABG pCO2 34.7 L ABG pO2 72 L ABG HCO3 23 ABG Total CO2 24 ABG O2 Saturation 95 ABG Base Excess -2.0 FiO2 60 Sodium Potassium Chloride Carbon Dioxide BUN Creatinine Estimated GFR BUN/Creatinine Ratio Glucose Hemoglobin A1c Lactate Calcium Total Creatine Kinase CK-MB (CK-2) CK-MB (CK-2) Rel Index Troponin I 0.152 H* 0.119 H Procalcitonin Nasal Screen MRSA (PCR) 11/17/18 11/18/18 11/18/18 23:20 03:44 04:41 WBC 17.2 H RBC 3.91 L Hgb 11.3 L Hct 33.8 L MCV 86.4 MCH 29.0 MCHC 33.6 RDW 15.1 H Plt Count 270 Neut % (Auto) 82.8 H Lymph % (Auto) 11.0 L [place] % (Auto) 5.5 Eos % (Auto) 0.2 L Baso % (Auto) 0.5 Neut # (Auto) 97401 H Lymph # (Auto) 1900 [place] # (Auto) 900 Eos # (Auto) 0 Baso # (Auto) 100 ESR ABG pH 7.43 ABG pCO2 41.0 ABG pO2 65 L ABG HCO3 28 H ABG Total CO2 29 ABG O2 Saturation 93 L ABG Base Excess 3.0 H FiO2 75 Sodium Potassium Chloride Carbon Dioxide BUN Creatinine Estimated GFR BUN/Creatinine Ratio Glucose Hemoglobin A1c Lactate Calcium Total Creatine Kinase 289 H CK-MB (CK-2) 0.94 CK-MB (CK-2) Rel Index 0.3 L Troponin I 0.111 H Procalcitonin Nasal Screen MRSA (PCR) 11/18/18 11/18/18 11/18/18 04:41 04:41 04:41 WBC RBC Hgb Hct MCV MCH MCHC RDW Plt Count Neut % (Auto) Lymph % (Auto) [place] % (Auto) Eos % (Auto) Baso % (Auto) Neut # (Auto) Lymph # (Auto) [place] # (Auto) Eos # (Auto) Baso # (Auto) ESR ABG pH ABG pCO2 ABG pO2 ABG HCO3 ABG Total CO2 ABG O2 Saturation ABG Base Excess FiO2 Sodium 134 L Potassium 3.9 Chloride 94 L Carbon Dioxide 31 BUN 14 Creatinine 0.80 Estimated GFR > 60.0 BUN/Creatinine Ratio 17.5 Glucose 191 H Hemoglobin A1c 9.2 H Lactate Calcium 8.4 Total Creatine Kinase CK-MB (CK-2) CK-MB (CK-2) Rel Index Troponin I Procalcitonin 1.06 H Nasal Screen MRSA (PCR) 11/18/18 11/18/18 04:41 04:41 WBC RBC Hgb Hct MCV MCH MCHC RDW Plt Count Neut % (Auto) Lymph % (Auto) [place] % (Auto) Eos % (Auto) Baso % (Auto) Neut # (Auto) Lymph # (Auto) [place] # (Auto) Eos # (Auto) Baso # (Auto) ESR 104 H ABG pH ABG pCO2 ABG pO2 ABG HCO3 ABG Total CO2 ABG O2 Saturation ABG Base Excess FiO2 Sodium Potassium Chloride Carbon Dioxide BUN Creatinine Estimated GFR BUN/Creatinine Ratio Glucose Hemoglobin A1c Lactate Calcium Total Creatine Kinase CK-MB (CK-2) CK-MB (CK-2) Rel Index Troponin I 0.128 H* Procalcitonin Nasal Screen MRSA (PCR) Discharge Plan [facility] Under care of provider: Dr. Coyle Discharge Med Rec/Prescriptions Prescriptions: Continued albuterol sulfate [Proventil HFA] 90 mcg/actuation HFA aerosol inhaler 1 puff INHALATION Q 6 HRS Qty: 1 RF: 0 clopidogrel [Plavix] 75 mg tablet 75 mg PO QDAY Qty: 90 RF: 0 verapamil 240 mg tablet extended release 240 mg PO QDAY Qty: 90 RF: 0 insulin NPH isoph U-100 human [Novolin N NPH U-100 Insulin] 100 unit/mL suspension 50 unit SUBCUT BID Qty: 3 RF: 0 insulin regular human [Novolin R Regular U-100 Insuln] 100 unit/mL solution See Patient Comments SUBCUT BID RF: 0 venlafaxine [Effexor XR] 150 MG capsule,extended release 24hr 300 mg PO Q DAY Qty: 0 RF: 0 gabapentin [Neurontin] 600 mg tablet 1,200 mg PO TID Qty: 0 RF: 0 Disabled Parking Permit 1 ea DAILY RF: 0 Follow up/Referrals: Shaylee Baltazar DO [Primary Care Provider] - Discharge Data Primary Care Provider: Shaylee Baltazar Attending Provider: Seamus Manning Admit Date/Time: 11/16/18 09:45 Quality VTE Deep Vein Thrombosis/Pulmonary Embolism Present on Admission: No
[2018-11-18 09:02] LABS: C-Reactive Protein Quant 37.5 mg/dL (<1.0)
[2018-11-18] MEDS: guaiFENesin ER 600 MG TAB 1200 MG PO (09:56)
[2018-11-18] MEDS: CLOPIDOGREL 75 MG TABLET PO (09:56)
[2018-11-18] MEDS: VENLAFAXINE ER 75 MG CAP 300 MG PO (09:56)
[2018-11-18] MEDS: GABAPENTIN 600 MG TABLET 1200 MG PO (09:58)
--- NOTE | 2018-11-18 10:05 | OT.IP.TRT ---
Current Diagnoses Pneumonia, unspecified organism (11/16/18) Occupational Therapy Treatment Note M3 OT- IP Subjective and Pain Start: 11/18/18 10:03 Freq: Status: Active Protocol: Document 11/18/18 10:04 [facility] (Rec: 11/18/18 10:05 [facility] [id number]) OT- Subjective Occupational Therapy Visit Type Type Administrative Note Notes Not able to see for OT eval, pt to be transferred out today .
[2018-11-18 10:09] LABS: Adenovirus Not Detected (Not Detect); Bordetella pertussis Not Detected (Not Detect); Chlamydophila pneumoniae Not Detected (Not Detect); Coronavirus 229E Not Detected (Not Detect); Coronavirus HKU1 Not Detected (Not Detect); Coronavirus NL 63 Not Detected (Not Detect); Coronavirus OC43 Not Detected (Not Detect); Human Metapneumovirus Not Detected (Not Detect); Human Rhinovirus/Enterovirus Not Detected (Not Detect); Influenza A Not Detected (Not Detect); Influenza B Not Detected (Not Detect); Mycoplasma pneumoniae Not Detected (Not Detect); Parainfluenza Virus 1 Not Detected (Not Detect); Parainfluenza Virus 2 Not Detected (Not Detect); Parainfluenza Virus 3 Not Detected (Not Detect); Parainfluenza Virus 4 Not Detected (Not Detect); Respiratory Syncytial Virus Not Detected (Not Detect)
[2018-11-18 10:38] LABS: PCO2 ABG 41.4 mmHg (35-45); pH ABG 7.44 (7.35-7.45)
[2018-11-18 10:39] LABS: HCO3 ABG 28 mmol/L (22-26); Oxygen Saturation ABG 97 % (95-100); PO2 ABG 85 mmHg (80-100); TCO2 ABG 30 mmol/L (21-31)
--- NOTE | 2018-11-18 11:39 | PC.NURSE ---
Addendum entered by Ailin Correia R.N. 11/18/18 11:58: Report given to Lili LIPSCOMB at [facility] and all questions answered. Original Note: Transfer Note Patient transferred to [facility] via ambulance at about 1110. Pt quite anxious and initially disagreeable to transfer stating it's all happening too fast, I want to call my family. Situation and rationale explained in detail x2 and pt acknowledged understanding and was then agreeable to the transfer. Marcella Manning was called and updated on the situation per pt request and also spoke to pt prior to transfer. Marcella Manning stated he would call and update the pt's daughters - pt aware of this and stated understanding. On 90% FiO2 biPAP at time of transfer with oxygen sats 92-97%. Report given to ambulance personnel, information packet sent with as well as patient belongings. Attempted to call report to received RN x2 at [facility] - on last attempt a call back number was left with the charge nurse (Deirdre) stating they would call for report. Notified them that pt was on the way via ambulance.
--- NOTE | 2018-11-18 11:43 | CM.DPC ---
DCP Cont: Patient is to be transferred out to [facility] for higher level of care. Patient will be transported via ambulance. Nurse coordinator, Duarte, has arranged this. P: Transfer to [facility] for higher level of care secondary to respiratory needs. Evonne Meza RN/Certified Orthoptist
--- NOTE | 2018-11-18 11:59 | PT.IPTN ---
Current Diagnoses Pneumonia, unspecified organism (11/16/18) Physical Therapy Treatment Note Notes Pt is transferring to [facility] today, will sign off.
== END 2018-11-18 11:20 | disposition short-term general hospital (02) | DRG 177 ==
LOC: ED 05:24 → AC 13:05 → ICU 11-17 10:17
PROVIDERS: Internal Medicine; Nurse Practitioner Adult Health; Admitting Provider Nurse Practitioner Gerontology; Emergency Provider Emergency Medicine; PCP Family Medicine; Visit Provider Nurse Practitioner Gerontology
DX: J15.6 Pneumonia due to other Gram-negative bacteria (principal); A41.9 Sepsis, unspecified organism; R65.20 Severe sepsis without septic shock; J80 Acute respiratory distress syndrome; J81.0 Acute pulmonary edema; E87.1 Hypo-osmolality and hyponatremia; E11.40 Type 2 diabetes mellitus with diabetic neuropathy, unspecified; E11.65 Type 2 diabetes mellitus with hyperglycemia; I69.344 Monoplegia of lower limb following cerebral infarction affecting left non-dominant side; I10 Essential (primary) hypertension; E66.9 Obesity, unspecified; Z68.37 Body mass index [BMI] 37.0-37.9, adult; F32.9 Major depressive disorder, single episode, unspecified; Z79.4 Long term (current) use of insulin; G89.29 Other chronic pain; Z96.89 Presence of other specified functional implants; Z87.891 Personal history of nicotine dependence
CPT/HCPCS: 36415; 36591; 36600; 71045; 71275; 80048; 80053; 80305; 82550; 82553; 82805; 82962; 83036; 83605; 83690; 83735; 83880; 84145; 84484; 85025; 85379; 85610; 85651; 85730; 86140; 87400; 87449; 87633; 87797; 93005; 93306; 94640; 94660; 94667; 94668; 94760; 94762; 96365; 99283; 99285; G0378; C9113; J0696; J1644; J1940; J2060; J2185; J2270; J2405; J2930; J7613; J7614; Q9967